=== PATIENT | male | born 2000 | race Caucasian/White ===

== ENCOUNTER 2024-05-27 09:28 | Inpatient (IN) | payer MEDICAID, SELFPAY ==
[2024-05-27 09:30] VITALS: BP 100/55; PULSE 115; RESP 19; TEMP 36.8; O2SAT 100; BMI 21.4
--- NOTE | 2024-05-27 09:46 | EDNOTE_ITS ---
ED Weakness RME/HPI General Chief complaint: Weakness Stated complaint: LEG WEAKNESS Time Seen by Provider: 05/27/24 09:42 Arrival date/time: 05/27/24 09:28 RME / HPI RME / HPI Narrative: 24 year old male with history of alcohol abuse, alcohol withdrawal seizures (x3) presents to the ED BIBA from home for evaluation of global weakness beginning 4 days ago. States 4 days ago he was getting out of bed and while attempting to stand, suddenly lost all strength in his legs and fell to the floor. States he was unable to get up on his own and required assistance up. Reportedly in the last 3 days he is bed ridden and crawling to use the restroom. Denies fevers, chills, chest pain, cough, shortness of breath, abdominal pain, n/v/d, urinary symptoms or urine/bowel incontinence. Denies any numbness/tingling to the lower extremities. Denies any head injury/trauma, neck pain. Denies any history of similar weakness. Denies dizziness or light headedness Patient admits to drinking alcohol every day and last drank this morning. States he drinks [place] hard lemonade. Related Data Home Medications ?Medication ?Instructions ?Recorded ?Confirmed No Known Home Medications 05/27/24 05/27/24 Allergies Allergy/AdvReac Type Severity Reaction Status Date / Time No Known Allergies Allergy Unverified 11/14/23 15:08 Review of Systems Review of Systems Narrative Review of Systems: GEN: No fever, no chills, no weight loss EYES: No discharge, no visual changes, no pain HEENT: No ear pain, no congestion, no sore throat PULM: No shortness of breath, no cough, no congestion CV: No chest pain, no palpitations GI: No nausea, no vomiting, no diarrhea, no pain, no constipation : No frequency, no urgency and no dysuria MUSC/SKEL No joint pain, no back pain SKIN: No rash NEURO: +generalized weakness, more in the lower extremities, no headache Past Medical History Past Medical History CARDIAC: Negative Congestive Heart Failure RESPIRATORY: Negative Chronic Obstructive Pulmonary Disease (COPD) GENITOURINARY: Negative Renal Disease ENDOCRINE: Negative Diabetes Mellitus Type 1 or Diabetes Mellitus Type 2 Social History SMOKING STATUS: Heavy (> 1 pack/day) SUBSTANCE USE: does not use ED Exam Narrative Physical exam: GENERAL APPEARANCE: Well hydrated, well nourished, in no acute distress. VITALS: All vitals were reviewed and the pulse ox is 100% on room air which is normal according to my interpretation. HEENT: Normocephalic, atramatic, EOMI, EACs are patent. There is no bulge or retraction. Throat without erythema or exudate. Moist oromucosa. No jaundice NECK: Supple, no JVD or bruits. CARDIOVASCULAR: Heart regular without S3-S4 or murmur. No rubs or gallops. LUNGS/CHEST: Clear to auscultation bilaterally. No rales, rhonchi, or wheezing. Normal inspection. ABDOMEN: Soft, nontender, with normal bowel sounds. No pulsatile masses. No rebound, rigidity, or guarding. No incarcerated hernia. Normal inspection and palpation. EXTREMITIES: No edema, clubbing, or cyanosis. SKIN: Warm and dry without rashes. Normal inspection. MUSCULOSKELETAL: No gross deformity. NEURO: Alert and oriented x3. Cranial nerves II through XII grossly intact. Patients lower extremities are weak, barely able to lift up against gravity. Fairly strong plantar flexion 3/5. Extremely weak dorsiflexion 0/5. PSYCHIATRIC: Normal mood and affect. No psychosis. Course Quality Measures none Orders Category Date Time Status EKG (ED ONLY) *Do not use* NOW Care 05/27/24 11:09 Completed Saline [Insert IV] NOW Care 05/27/24 09:58 Active Consult to Neurology / Tele-Neurology Stat Cons 05/27/24 12:[address] cervical spine wo con Stat Exams 05/27/24 09:[address] head/brain wo con Stat Exams 05/27/24 09:[address] lumbar spine wo con Stat Exams 05/27/24 09:[address] thoracic spine wo con Stat Exams 05/27/24 09:58 Completed EKG (ED Only) Stat Exams 05/27/24 11:09 Draft Alcohol, Blood Medical Stat Lab 05/27/24 10:00 Completed CBC Stat Lab 05/27/24 10:00 Completed CMP [Comprehensive Metabolic Panel] Stat Lab 05/27/24 10:00 Completed Drug Screen,Urine Stat Lab 05/27/24 11:00 Completed Folate Stat Lab 05/27/24 12:51 Ordered Magnesium Stat Lab 05/27/24 10:00 Completed Prothrombin Time with INR Stat Lab 05/27/24 10:00 Completed Vitamin B1 (Thiamine)* Stat Lab 05/27/24 Ordered Vitamin B12 Stat Lab 05/27/24 12:51 Ordered Vitamin D 25 Hydroxy Total Stat Lab 05/27/24 12:51 Ordered POTASSIUM CHL 10 mEq IVPB [Kcl Ivpb] Med 05/27/24 10:47 Discontinued 10 meq in 100 ml IV Q1H Potassium Chloride [K-Dur] Med 05/27/24 10:47 Discontinued 40 meq PO X1 ONE Sodium Chloride 0.9% 1000 ml [Ns] 1,000 ml Med 05/27/24 13:01 Active Folic Acid Inj 1 mg Thiamine Inj [Vitamin B-1 Inj] 100 mg Multivitamin Inj [Infuvite Inj] 10 ml Magnesium Sulf 50% Inj (gm) 1 gm IV 500 mls/hr Sodium Chloride 0.9% 1000 ml [Ns] 1,000 ml Med 05/27/24 10:18 Active IV 125 mls/hr Vital Signs Vital signs: Vital Signs Temperature 98.2 F 05/27/24 09:30 Pulse Rate 115 H 05/27/24 09:30 Respiratory Rate 19 05/27/24 09:30 Blood Pressure 100/55 L 05/27/24 09:30 Pulse Oximetry (%) 100 05/27/24 09:30 Oxygen Delivery Method Room Air 05/27/24 09:30 Weakness MDM Narrative MDM Narrative:: Heather Cortés am scribing for and in the presence of Dr. Dougherty. CBC unremarkable. Potassium of 2.6 which is low. The rest of CMP is negative. Liver enzymes slightly elevated consistent with chronic alcohol consumption. Alcohol level is only 41. U tox is negative. Pro time is negative. Magnesium is normal. CT head was reviewed and interpreted by me as follow: No bleed. No mass. No shifting. No swelling. Normal ventricles and normal bones CT cervical spine was reviewed and interpreted by me as follow: No fracture. No dislocation. No mass. No disc collapse CT thoracic spine was reviewed and interpreted by me as follow: No fracture. No dislocation. No mass. No disc collapse CT lumbar spine was reviewed and interpreted by me as follow: No fracture. No dislocation. No mass. No collapse discs Twelve-lead EKG that was done at 11:20 AM and interpreted by me as follow: Normal sinus rhythm. Heart rate 106. Normal axis. No ST elevation or depression. No PVC. No STEMI. Regular rate and rhythm. In the emergency department we are giving the patient IV fluid and potassium by mouth and by IV. 12:45 PM, I spoke to and discussed with Dr Snyder, neurologist on-call. She knows the patient from previous admission. She recommend to check the level of thiamine, folate, B12 and vitamin D. Which I did put in. After the lab being drawn for the above, we will put the patient on a banana bag. 12:50 PM, I spoke to and discussed with Dr. Patel, hospitalist on-call. He is here to evaluate the patient and decided to admit the patient. Critical care time is approximately 35 minutes excluding any procedure. The high probability of sudden, clinically significant deterioration in the patient?s condition required the highest level of my preparedness to intervene urgently. The services I provided to this patient were to treat and/or prevent clinically significant deterioration. Services included the following: chart data review, reviewing nursing notes and/or old charts, documentation time, j2ee consultant collaboration regarding findings and treatment options, medication orders and management, direct patient care, vital sign assessments and ordering, interpreting and reviewing diagnostic studies and lab tests. Aggregate critical care time includes only time during which I was engaged in work directly related to the patient?s care, as described above, whether at bedside or elsewhere in the Emergency Department. It did not include time spent performing other reported procedures or the services of residents, students, nurses or physician assistants. Patient data External records reviewed:: [facility] previous records (I reviewed ED visit on 11/16/2023) and EMS form Clinical information provided by:: patient and EMS Social determinants that could affect healthcare access:: alcohol use Patient has the following chronic illnesses:: Alcohol abuse, hx of alcohol withdrawal seizures x3 How is presenting disease/condition affected by chronic disease/condition?: exacerbated by Evaluation data The following diagnostics were reviewed and interpreted by me:: lab results and radiology exam(s) Lab and/or radiology exams considered but not ordered:: None Interpretation Summary: Ordering Physician: Massimo Dougherty MD Date of Service: 05/27/24 Procedure(s): CT cervical spine wo con Accession Number(s): [id number] cc: Pasquale oG MD; NO PRIMARY/FAMILY,PHYSICIAN; Massimo Dougherty MD~ Examination: CT cervical spine without contrast 2-D sagittal reconstructions 2-D coronal reconstructions 3-D reconstructions. Exam date and time:May 27, 2024 1009 hours INDICATIONS: Frequent falls this week with injury to the neck, neck pain CTDI:vol (mGy) 7.62 DLP: (mGycm) 173 Technique: Multiple 2 mm axial sections of the cervical spine have been obtained. The coronal and sagittal reconstructions have been obtained. 3-D reconstructions have been obtained. Low dose protocols were performed. One or more of the following dose reduction techniques were used; automated exposure control, adjustment of the mA and/or KV according to patient size, use of iterative reconstruction technique. Findings: Axial sections demonstrate intact base of the skull. C1 exhibit satisfactory relationship to the odontoid. No acute cervical vertebral body fracture seen. Alignment posterior spinous processes satisfactory. Impression: No acute cervical fracture. Dictated By: Pasquale Go MD Signed By: <Electronically signed by Pasquale Go MD in OV> 05/27/24 1052 Ordering Physician: Massimo Dougherty MD Date of Service: 05/27/24 Procedure(s): CT head/brain wo [facility] Accession Number(s): [id number] cc: Pasquale Go MD; NO PRIMARY/FAMILY,PHYSICIAN; Massimo Dougherty MD~ Examination: CT brain head without contrast. 2-D sagittal coronal reconstructions Date and time of exam:May 27, 2024 1009 hours INDICATIONS: Frequent falls this week with injury to the head, head pain COMPARISON: December 14, 2023 CTDI: vol (mGy):50.5 DLP: (mGycm):941 Technique: Multiple CT axial sections of the brain have been obtained, 5 mm slice thickness. Contrast has not been administered. 2-D sagittal, coronal reconstructions have been obtained Low dose protocols were performed. One or more of the following dose reduction techniques were used; automated exposure control, adjustment of the mA and/or KV according to patient size, use of iterative reconstruction technique. Findings: No significant ventricular enlargement. Intra-axial or extra-axial hemorrhage density is not seen. No mass effect or midline shift Basal cisterns are not remarkable. Fourth ventricle is midline. Cranial vault intact. Impression: Negative for acute hemorrhage, mass effect or midline shift Dictated By: Pasquale Go MD Signed By: <Electronically signed by Pasquale Go MD in OV> 05/27/24 1053 Ordering Physician: Massimo Dougherty MD Date of Service: 05/27/24 Procedure(s): CT lumbar spine wo con Accession Number(s): [id number] cc: Pasquale Go MD; NO PRIMARY/FAMILY,PHYSICIAN; Massimo Dougherty MD~ Examination: CT lumbar spine, without contrast. 2-D sagittal reconstructions. 2-D coronal reconstructions. 3-D reconstructions. Date and time of exam:May 27, 2024 1014 hours INDICATIONS: Frequent falls over the last 3 days with injury to the lower back, lower back pain CTDI: vol (mGy):11.6 DLP: (mGycm):339 Technique: Multiple 1.25 mm axial sections of the lumbar spine without intravenous contrast have been obtained. 2-D sagittal and coronal reconstructions have been obtained. 3-D reconstructions have been obtained. Low dose protocols were performed. One or more of the following dose reduction techniques were used; automated exposure control, adjustment of the mA and/or KV according to patient size, use of iterative reconstruction technique. Findings: Adequate alignment lumbar vertebral bodies on the lateral view No lumbar vertebral body compression fracture No lumbar disc narrowing Lumbar pedicles, laminae, transverse and posterior spinous processes intact No focal lumbar disc protrusions IMPRESSION: No lumbar fracture Dictated By: Pasquale Go MD Signed By: <Electronically signed by Pasquale Go MD in OV> 05/27/241055 Ordering Physician: Massimo Dougherty MD Date of Service: 05/27/24 Procedure(s): CT thoracic spine wo [facility] Accession Number(s): [id number] cc: Pasquale Go MD; NO PRIMARY/FAMILY,PHYSICIAN; Massimo Dougherty MD~ Examination: CT thoracic spine, without contrast. 2-D sagittal reconstructions. 2-D coronal reconstructions. 3-D reconstructions. Date and time of exam:May 27, 2024 1014 hours INDICATIONS: Frequent falls over the last 3 days with injury to the back, back pain CTDI: vol (mGy):17.3 DLP: (mGycm):535 Technique: Multiple 1.25 mm axial sections of the thoracic spine without intravenous contrast have been obtained. 2-D sagittal and coronal reconstructions have been obtained. 3-D reconstructions have been obtained. Low dose protocols were performed. One or more of the following dose reduction techniques were used; automated exposure control, adjustment of the mA and/or KV according to patient size, use of iterative reconstruction technique. Findings: Adequate alignment thoracic vertebral bodies No thoracic vertebral body compression fracture Thoracic pedicles, laminae, transverse and posterior spinous processes intact No focal thoracic disc protrusions IMPRESSION: No acute thoracic fracture Dictated By: Pasquale Go MD Signed By: <Electronically signed by Pasquale Go MD in OV> 05/27/241054 Medications / Prescriptions Medications or Prescriptions considered but not ordered:: None Medication administrations:: Medication Administration History Sodium Chloride (Ns) 1,000 mls @ 125 mls/hr IV .Q8H ONE Stop: 05/27/24 18:17 Last Admin: 05/27/24 10:51 Dose: 125 mls/hr Documented By: ARF Folic Acid 1 mg/ Thiamine HCl 100 mg/ Multivitamins/Minerals 10 ml/ Magnesium Sulfate 1 gm / Sodium Chloride 1,013.2 mls @ 500 mls/hr IV .Q2H2M ONE Stop: 05/27/24 15:02 Discontinued Medications Potassium Chloride (Kcl Ivpb) 10 meq in 100 mls @ 100 mls/hr IV Q1H STA Stop: 05/27/24 11:46 Last Admin: 05/27/24 10:56 Dose: 100 mls/hr Documented By: ARF Potassium Chloride (Potassium Chloride 20 Meq Tabcr) 40 meq PO X1 ONE Stop: 05/27/24 10:48 Last Admin: 05/27/24 10:56 Dose: 40 meq Documented By: ARF See above Consultations Consultation(s) initiated? (list below): Yes Consultation #1 (Physician, Specialty, Details): I spoke with hospitalist Dr. Patel regarding admission. Discussed patients PMHx, HPI, ED course, exam findings, labs, and radiology results as noted above. Time: 12:45 Consultation #2 (Physician, Specialty, Details): I spoke with neurologist Dr. Snyder. Discussed patients PMHx, HPI, ED course, exam findings, labs, and radiology results as noted above. Time: 12:47 Diagnosis Weakness Differential Diagnosis: anemia, hypothyroidism, rhabdomyolysis, sepsis and dehydration Most likely diagnosis given after review of the tests above:: Peripheral neuropathy Alcoholism Hypokalemia Leg weakness Admission Indicated Admission indicated?: indicated Admission Request Was there a request for admission?: Yes Admission Attestation Admission request attestation: Discussed case with [] from Hospitalist service regarding admission. Discussed patients ED course, exam findings, labs, and radiology results. The Hospitalist [agrees,declines] to accept the patient for admission. Disposition Plan Disposition Plan: Admit Discharge Plan Plan Patient Disposition: Admit Acute Care w/in Hospital Disposition Comment: Stable for admit Prescriptions/Referrals Prescriptions/Med Rec: No Action No Known Home Medications Referrals: No Primary/Family,Physician [Primary Care Provider] - In 1 week Problem List Clinical Impression: Bilateral leg weakness, Peripheral neuropathy, Alcoholism, Acute hypokalemia Patient/Caregiver Discharge Instructions Print Language: Slovak Stand Alone Forms: Krystle Award Info., Patient Portal Info Letter
--- NOTE | 2024-05-27 09:58 | XR_ITS ---
Examination: CT lumbar spine, without contrast. 2-D sagittal reconstructions. 2-D coronal reconstructions. 3-D reconstructions. Date and time of exam:May 27, 2024 1014 hours INDICATIONS: Frequent falls over the last 3 days with injury to the lower back, lower back pain CTDI: vol (mGy):11.6 DLP: (mGycm):339 Technique: Multiple 1.25 mm axial sections of the lumbar spine without intravenous contrast have been obtained. 2-D sagittal and coronal reconstructions have been obtained. 3-D reconstructions have been obtained. Low dose protocols were performed. One or more of the following dose reduction techniques were used; automated exposure control, adjustment of the mA and/or KV according to patient size, use of iterative reconstruction technique. Findings: Adequate alignment lumbar vertebral bodies on the lateral view No lumbar vertebral body compression fracture No lumbar disc narrowing Lumbar pedicles, laminae, transverse and posterior spinous processes intact No focal lumbar disc protrusions IMPRESSION: No lumbar fracture
--- NOTE | 2024-05-27 09:58 | XR_ITS ---
Examination: CT brain head without contrast. 2-D sagittal coronal reconstructions Date and time of exam:May 27, 2024 1009 hours INDICATIONS: Frequent falls this week with injury to the head, head pain COMPARISON: December 14, 2023 CTDI: vol (mGy):50.5 DLP: (mGycm):941 Technique: Multiple CT axial sections of the brain have been obtained, 5 mm slice thickness. Contrast has not been administered. 2-D sagittal, coronal reconstructions have been obtained Low dose protocols were performed. One or more of the following dose reduction techniques were used; automated exposure control, adjustment of the mA and/or KV according to patient size, use of iterative reconstruction technique. Findings: No significant ventricular enlargement. Intra-axial or extra-axial hemorrhage density is not seen. No mass effect or midline shift Basal cisterns are not remarkable. Fourth ventricle is midline. Cranial vault intact. Impression: Negative for acute hemorrhage, mass effect or midline shift
--- NOTE | 2024-05-27 09:58 | XR_ITS ---
Examination: CT thoracic spine, without contrast. 2-D sagittal reconstructions. 2-D coronal reconstructions. 3-D reconstructions. Date and time of exam:May 27, 2024 1014 hours INDICATIONS: Frequent falls over the last 3 days with injury to the back, back pain CTDI: vol (mGy):17.3 DLP: (mGycm):535 Technique: Multiple 1.25 mm axial sections of the thoracic spine without intravenous contrast have been obtained. 2-D sagittal and coronal reconstructions have been obtained. 3-D reconstructions have been obtained. Low dose protocols were performed. One or more of the following dose reduction techniques were used; automated exposure control, adjustment of the mA and/or KV according to patient size, use of iterative reconstruction technique. Findings: Adequate alignment thoracic vertebral bodies No thoracic vertebral body compression fracture Thoracic pedicles, laminae, transverse and posterior spinous processes intact No focal thoracic disc protrusions IMPRESSION: No acute thoracic fracture
--- NOTE | 2024-05-27 09:58 | XR_ITS ---
Examination: CT cervical spine without contrast 2-D sagittal reconstructions 2-D coronal reconstructions 3-D reconstructions. Exam date and time:May 27, 2024 1009 hours INDICATIONS: Frequent falls this week with injury to the neck, neck pain CTDI:vol (mGy) 7.62 DLP: (mGycm) 173 Technique: Multiple 2 mm axial sections of the cervical spine have been obtained. The coronal and sagittal reconstructions have been obtained. 3-D reconstructions have been obtained. Low dose protocols were performed. One or more of the following dose reduction techniques were used; automated exposure control, adjustment of the mA and/or KV according to patient size, use of iterative reconstruction technique. Findings: Axial sections demonstrate intact base of the skull. C1 exhibit satisfactory relationship to the odontoid. No acute cervical vertebral body fracture seen. Alignment posterior spinous processes satisfactory. Impression: No acute cervical fracture.
--- NOTE | 2024-05-27 09:58 | PC.NURSE ---
PT BIBA TO ED FOR COMPLAINS OF NOT BEING ABLE TO WALK FOR THREE DAYS. PT STATED THAT HE WOKE UP IN THE MORNING AND TRIED TO GET UP TO THE BATHROOM AND HIS LEGS GAVE OUT. PT HAS BEEN CRAWLING AROUND AT HOME TO GET PLACES. PT HAS BRUISING TO HIS KNEES FROM CRAWLING ON THE GROUND. PT STATES HE DRINKS ABOUT THREE TALL CANS OF MIKES HARD [place] A DAY LAST DRINK WAS EARLY THIS AM. PT ALSO SATES HE HAS NUMBNESS TO THE RIGHT FOOT. PT ALERT AND ORIENTED X3, STATES HE HAS HAD SZ IN THE PAST LAST ONE BEING 6 MONTHS AGO. PT STATES HE IS SUPPOSED TO BE TAKIN GMEDS, DOESNT KNOW WHAT THEY ARE CALLED, BUT DOESNT TAKE ANY MEDS AT HOME. PT PLACED ON RECONDITIONER, IV PLACED, BLOOD DRAWN. WILL CONT TO MONITOR
[2024-05-27 10:30] LABS: Basophils # (Auto) 0.1 Thou/mm3 (0.0-0.2); Basophils % (Auto) 1 % (0-2.5); Eosinophils # (Auto) 0.1 Thou/mm3 (0.0-0.5); Eosinophils % (Auto) 2 % (0-10); Hematocrit 37.5 % (41.0-53.0); Hemoglobin 13.4 g/dL (13.5-16.0); Immature Granulocytes % (Auto) 0 % (0-0); Immature Granulocytes Auto 0.03 Thou/mm3 (0.00-0.00); Lymphocytes # (Auto) 1.6 Thou/mm3 (1.0-4.8); Lymphocytes % (Auto) 18 % (10-50); Mean Corpuscular HGB Conc 35.7 g/dl (31.0-37.0); Mean Corpuscular Hemoglobin 36.5 pg (25.0-35.0); Mean Corpuscular Volume 102 fL (80-100); Monocytes # (Auto) 1.4 Thou/mm3 (0.0-0.8); Monocytes % (Auto) 16 % (0-12); Neutrophils # (Auto) 5.4 Thou/mm3 (1.8-7.7); Neutrophils % (Auto) 63 % (37-80); Nucleated Red Blood Cell # 0.02 Thou/mm3 (0.00-0.00); Nucleated Red Blood Cell % 0 /100 WBC (0); Platelet Count 221 Thou/mm3 (140-440); Red Blood Count 3.67 Miln/mm3 (4.50-5.90); White Blood Count 8.6 Thou/mm3 (3.8-10.6)
[2024-05-27 10:35] LABS: Prothrombin Time 10.7 Seconds (9.0-12.2)
[2024-05-27 10:41] LABS: Alanine Aminotransferase 88 U/L (10-49); Albumin, Serum 3.4 gm/dL (3.5-5.0); Albumin/Globulin Ratio 1.5 (1.2-2.2); Alcohol, Blood Medical 41.4 mg/dL (0-10.0); Alkaline Phosphatase 70 U/L (46-116); Anion Gap 13 (7-16); Aspartate Amino Transferase 96 U/L (0-34); BUN/Creatinine Ratio 7 Ratio (12-20); Bilirubin,Total 0.9 mg/dL (0.3-1.2); Blood Urea Nitrogen < 5 mg/dL (9-23); Calcium 9.4 mg/dL (8.3-10.6); Calcium (Corrected) 9.9 mg/dL (8.5-10.1); Carbon Dioxide 30.7 mMol/L (20.0-31.0); Chloride 90 mMol/L (98-107); Creatinine (Component) 0.7 mg/dL (0.6-1.3); Estimated Creatinine Clearance 128.2 mL/min (>60); Globulin 2.2 gm/dL (2.3-3.5); Glucose 92 mg/dL (74-106); Magnesium 2.1 mg/dL (1.6-2.6); Osmolality,Calculated 265 (275-295); Sodium 134 mMol/L (136-145); Total Protein 5.6 gm/dL (5.7-8.2); eGFR > 60 See Note
[2024-05-27 10:44] LABS: Potassium 2.6 mMol/L (3.4-5.1)
[2024-05-27] MEDS: SODIUM CHLORIDE 0.9% 1000 ML 1,000 ML 125 ML IV (10:51)
[2024-05-27] MEDS: POTASSIUM CHLORIDE 20 mEq TABCR 40 MEQ PO (10:56)
[2024-05-27] MEDS: POTASSIUM CHL 10 mEq IVPB 10 MEQ/100 ML BAG 100 MEQ IV ×4 (10:56→18:55)
--- NOTE | 2024-05-27 11:09 | EKG_ITS ---
[facility] Test Date: 2024-05-27 Pat Name: CAMILLE HUGO Department: Room: - Gender: Male [employer] Machine: : 2000 Requested By: Massimo Dougherty Order Number: [id number] Reading MD: Massimo Dougherty Measurements Intervals [place] Rate: 106 P: 50 MO: 139 QRS: 68 QRSD: 83 T: 11 QT: 372 QTc: 494 Interpretive Statements SINUS TACHYCARDIA NONSPECIFIC T-WAVE ABNORMALITY ABNORMAL RHYTHM ECG Compared to ECG 11/16/2023 12:18:50 T-wave abnormality now present Short MO interval no longer present /store/S0/[id number]
[2024-05-27 11:23] LABS: Amphetamine/Methamp Scrn,U Negative (Negative); Barbiturate Screen,Urine Negative (Negative); Benzodiazepines Screen,Urine Negative (Negative); Benzoylecgonine Screen, Ur Negative (Negative); Fentanyl Screen,Urine Negative (Negative); Opiate Screen,Urine Negative (Negative); THC Screen,Urine Negative (Negative)
[2024-05-27 12:34] VITALS: BP 96/52; PULSE 110; RESP 19; TEMP 36.8; O2SAT 100
--- NOTE | 2024-05-27 14:08 | ESHP_ITS ---
<Statement entered by Last Mitchell MD - 05/27/24 20:42> 24-year-old male, with past medical history of alcohol use and alcohol withdrawal seizures came to the ED with generalized bilateral weakness. His potassium was low. Will replete potassium as needed. Dr Snyder on board. [facility] protocol. Will trend LFTs. Nicotine patch started. Pending Dr. Snyder's recs I discussed with and supervised my co-resident involved in the care of this patient. I agree with the assessment and plan as documented above. Last Mitchell,PGY-3 Disclaimer: Despite multiple revisions, due to the dictation software being used, the document below may not be free of grammatical errors including phonetic/typographic errors. However, this does not deter from our commitment to providing health care in the patient's best interest in mind. Documentation for date of: 05/27/24 HPI History of Present Illness Chief complaint: General body weakness History of present illness: The patient is a 24-year-old male with a previous medical history of alcohol abuse disorder and withdrawal seizures who came to the ED due to general body weakness that started few days ago, he noticed when he went to the restroom his legs were starting to feel weak, giving out . He also reported having cramping pain in his lower extremities. He reported drinking alcohol every day, he usually drinks mikes hard lemon drink, last alcohol intake was this morning. He reports his last episode of seizures was 6 months ago, he was admitted but left AMA. He was consulted by neurologist Dr Snyder during his previous admission, but did not follow-up with her outpatient. He denies taking any medications. According to the EMR, he was prescribed propranolol and sertraline. Had a discussion with patient regarding possibly following up with commercial marketing specialist outpatient, discussed with him aftermath of alcohol use, he showed interested in following up. ED course: Patient is tachycardic, afebrile, normotensive. Pertinent labs are hemoglobin 13.4, MCV 102, potassium 2.6, sodium 134, osmolality 265, AST 96, ALT 88, total protein 5.6, albumin 3.4, vitamin D 6.2, folate 2.19. Head and spine CT were unremarkable, EKG showed sinus tachycardia. He received 60 mEq of potassium chloride, was started on banana bag and normal saline at 125 mL/h. Patient will be admitted for general weakness due to hypokalemia caused by poor oral intake and alcohol abuse. Social history: Lives with his dad, occupation is self-employed patternmaker. Drinks alcohol every day, smokes a pack and a half every day for 8 years. Review of Systems Review of Systems Narrative Review of Systems: General: Denies weight loss, fever and chills. Reports general weakness, more in the lower extremities. HEENT: Denies changes in vision and hearing. Resp: Denies SOB, cough and wheezing. CVS: Denies palpitations and CP. GI: Denies abdominal pain, nausea, vomiting and diarrhea. : Denies dysuria and urinary frequency. MSK: Denies rash and pruritus. Reports pain in the lower extremities' muscles. Neuro: Denies headache and syncope. Psych: Reports feeling irritation due to feeling weak. Past Medical History Past Medical History CARDIAC: Negative Congestive Heart Failure RESPIRATORY: Negative Chronic Obstructive Pulmonary Disease (COPD) GENITOURINARY: Negative Renal Disease ENDOCRINE: Negative Diabetes Mellitus Type 1 or Diabetes Mellitus Type 2 Social History SMOKING STATUS: Heavy (> 1 pack/day) SUBSTANCE USE: does not use Exam Vital Signs Temp Pulse Resp BP Pulse Ox O2 Del Method 98.2 F 110 H 19 96/52 L 100 Room Air 05/27/24 12:34 05/27/24 12:34 05/27/24 12:34 05/27/24 12:34 05/27/24 12:34 05/27/24 12:34 Narrative Exam Physical Exam General: Awake and in no acute distress. Conversational and non-toxic appearing. HEENT: Normocephalic, atraumatic, mucous membranes moist. Heart: Regular rate and rhythm, no murmurs. Lungs: Clear to auscultation with no wheezing or crackles. Abdomen: Soft, nondistended, nontender, positive bowel sounds. ?No guarding or rebound tenderness. Neurologic: Alert and oriented x3, strength in the upper extremities 5/5, lower extremities 4/5. Extremities: No edema. Skin: No rash or ecchymoses. Results: Labs 05/29/24 05:11 05/29/24 05:11 Labs: Short CBC 05/27/24 Range/Units 10:00 WBC 8.6 (3.8-10.6) Thou/mm3 Hgb 13.4 L (13.5-16.0) g/dL Hct 37.5 L (41.0-53.0) % Plt Count 221 (140-440) Thou/mm3 [facility] 05/27/24 10:00 Sodium 134 L Potassium 2.6 L* Chloride 90 L Carbon Dioxide 30.7 BUN < 5 L Creatinine 0.7 Glucose 92 Calcium 9.4 Liver Function 05/27/24 Range/Units 10:00 Total Bilirubin 0.9 (0.3-1.2) mg/dL AST 96 H (0-34) U/L ALT 88 H (10-49) U/L Alkaline Phosphatase 70 (46-116) U/L Albumin 3.4 L (3.5-5.0) gm/dL Quality Measures Quality Measures none Medications Home Medications and Allergies Allergies Allergy/AdvReac Type Severity Reaction Status Date / Time No Known Allergies Allergy Unverified 11/14/23 15:08 Visit Medications Acetaminophen (Acetaminophen 325 Mg Tablet) 650 mg PO Q6H PRN PRN Reason: Fever >101.5 Stop: 06/26/24 13:54 Chlordiazepoxide HCl (Chlordiazepoxide Hcl 25 Mg Capsule) 25 mg PO TID RICARDO Stop: 06/01/24 14:14 Docusate Sodium (Docusate Sod 100 Mg Capsule) 100 mg PO QDAY PRN; Protocol PRN Reason: CONSTIPATION Stop: 06/26/24 13:54 Enoxaparin Sodium (Enoxaparin Sod Inj 40 Mg/0.4 Ml Syringe) 40 mg SC QDAY RICARDO Stop: 06/11/24 08:59 Folic Acid (Folic Acid 1 Mg Tablet) 1 mg PO BID RICARDO Stop: 06/01/24 20:59 Sodium Chloride (Ns) 1,000 mls @ 125 mls/hr IV .Q8H ONE Stop: 05/27/24 18:17 Last Admin: 05/27/24 10:51 Dose: 125 mls/hr Folic Acid 1 mg/ Thiamine HCl 100 mg/ Multivitamins/Minerals 10 ml/ Magnesium Sulfate 1 gm / Sodium Chloride 1,013.2 mls @ 500 mls/hr IV .Q2H2M ONE Stop: 05/27/24 15:02 Lorazepam (Lorazepam 0.5 Mg Tablet) 0.5 mg PO Q4HR PRN PRN Reason: CIWA Score 2-6 Stop: 06/01/24 14:02 Lorazepam (Lorazepam 0.5 Mg Tablet) 1 mg PO Q4HR PRN PRN Reason: CIWA SCORE 7-11 Stop: 06/01/24 14:02 Lorazepam (Lorazepam 0.5 Mg Tablet) 2 mg PO Q4HR PRN PRN Reason: CIWA SCORE 12-15 Stop: 06/01/24 14:02 Nicotine (Nicotine Patch 21 Mg/24 Hr Patch.Td24) 21 mg TOP QDAY RICARDO Stop: 06/26/24 14:14 Ondansetron HCl (Ondansetron Inj 2 Mg/Ml Inj 2 Ml) 4 mg IV Q6H PRN; Protocol PRN Reason: NAUSEA OR VOMITING Stop: 06/26/24 13:54 Sennosides (Senna Tablet) 1 tab PO QDAY PRN; Protocol PRN Reason: constipation Stop: 06/26/24 13:54 Thiamine HCl (Thiamine 100 Mg Tablet) 100 mg PO BID RICARDO Stop: 06/01/24 20:59 Discontinued Medications Chlordiazepoxide HCl (Chlordiazepoxide Hcl 25 Mg Capsule) 50 mg PO BID RICARDO Stop: 06/01/24 20:59 Potassium Chloride (Kcl Ivpb) 10 meq in 100 mls @ 100 mls/hr IV Q1H STA Stop: 05/27/24 11:46 Last Admin: 05/27/24 10:56 Dose: 100 mls/hr Potassium Chloride (Potassium Chloride 20 Meq Tabcr) 40 meq PO X1 ONE Stop: 05/27/24 10:48 Last Admin: 05/27/24 10:56 Dose: 40 meq Assessment & Plan Plan The patient is a 24-year-old male with a previous medical history of alcohol abuse disorder and withdrawal seizures who came to the ED due to general body weakness that started few days ago, he noticed when he went to the restroom his legs were starting to really feel weak. He was admitted due to general weakness, hypokalemia. #Hypokalemia #Alcohol abuse disorder #General muscle weakness Patient has a history of eating one meal a day and drinking every day. Patient received 60 mEq of potassium chloride in the ED and was started on banana bag. Plan: ? CIWA protocol, lorazepam as needed p.o. ? Chlordiazepoxide 25 mg 3 times daily ? Thiamine and folate p.o. ? Repeat potassium ? Monitor daily CMP - Maintenance fluids NS @125 ml/hr ?Refer to psych social worker #Macrocytic anemia Most likely in the setting of folate deficiency caused by poor oral intake. Labs show low level of folate. Plan: ? folate p.o. daily #Chronic smoker Patient showed interest in cutting down smoking. Plan: ? Nicotine patch 21 mg daily Health maintenance: FEN: regular DVT prophylaxis: lovenox 40 sc once GI prophylaxis: none Dispo: med tele CODE STATUS: Full code Plan of care discussed with attending Dr. Patel and PGY-[address] Mitchell. Leslee Lazo MD, PGY 1. Attending Provider Attestation/Addendum I reviewed labs, imaging, EKG, home medications and prior available records. Face to face evaluation was performed by me. I have personally examined the patient and discussed assessment and plan with the IM team. I reviewed the resident note and agree with the plan with exceptions as below. Please see my separate addendum for the same date of service
[2024-05-27] MEDS: [UNRECOGNIZED DRUG - OTHER] IV (14:10)
[2024-05-27] MEDS: FOLIC ACID IV (14:10)
[2024-05-27] MEDS: MULTIVITAMIN IV (14:10)
[2024-05-27] MEDS: THIAMINE IV (14:10)
[2024-05-27] MEDS: chlordiazePOXIDE HCl 25 MG CAPSULE PO ×2 (14:19→21:01)
[2024-05-27 14:33] LABS: Folate 2.19 ng/mL (>5.38); Vitamin B12 649 pg/mL (211-911); Vitamin D 25 Hydroxy Total 6.2 ng/mL (7.3-40.2)
[2024-05-27] MEDS: NICOTINE PATCH 21 MG/24 HR PATCH.TD24 TOP (14:48)
--- NOTE | 2024-05-27 14:56 | PD.ADDHP ---
Addendum History & Physical Addendum Date of report being addended: 05/27/24 Narrative: Attending's attestation: I reviewed labs, imaging, EKG, home medications and prior available records. Face to face evaluation was performed by me. I have personally examined the patient and discussed assessment and plan with the IM team. I reviewed the resident note and agree with the plan with exceptions as below. Generalized weakness Bilateral lower extremity weakness Alcohol abuse Tobacco abuse Acute hypotension Sinus tachycardia Hypokalemia Transaminitis Patient's bilateral lower extremity weakness is likely due to alcohol abuse versus vitamin deficiency. Consulted neurology: Recommended ordering vitamin levels. Banana bag was ordered in the ED Obtain PT evaluation IV hydration. Monitor vital signs Replete potassium and monitor BMP Transaminitis is likely due to alcohol abuse. Management as above. Trend LFTs. Started Librium 25 mg 3 times daily Counseled the patient regarding the importance of avoiding tobacco and avoiding alcohol CIDE protocol
[2024-05-27 15:33] VITALS: BP 149/81; PULSE 14; RESP 14; TEMP 36.8; O2SAT 98
[2024-05-27 16:27] LABS: Potassium 3.3 mMol/L (3.4-5.1)
[2024-05-27 17:25] VITALS: BP 115/68; PULSE 105; RESP 12; TEMP 36.8; O2SAT 99
[2024-05-27 18:49] VITALS: BP 105/64; PULSE 98; RESP 12; TEMP 36.6; O2SAT 99
[2024-05-27 19:49] VITALS: BMI 20.9
[2024-05-27 20:00] VITALS: BP 114/76; PULSE 98; RESP 20; TEMP 37; O2SAT 97
[2024-05-27] MEDS: FOLIC ACID 1 MG TABLET PO (21:01)
[2024-05-27] MEDS: POTASSIUM CHLORIDE 20 mEq TABCR PO (21:01)
[2024-05-27] MEDS: THIAMINE 100 MG TABLET PO (21:01)
[2024-05-27] MEDS: ACETAMINOPHEN 325 MG TABLET 650 MG PO (23:02)
--- NOTE | 2024-05-27 23:22 | ESCONSULT_ITS ---
History of Present Illness Data of Consult Requesting Physician: Kaiser Patel MD Primary Care Provider: Physician No Primary/Family Consult Narrative History of present illness: Mr. Fong is a 24-year-old male with chronic alcohol abuse disorder and withdrawal seizures presented to the ER with generalized weakness lasting for few days to the point of legs giving out associated with the cramping. He drinks every day, last drink was this morning. No seizures witnessed in the last few days. He did have alcohol withdrawal seizure 6 months ago but he left AGAINST MEDICAL ADVICE in the middle of the workup. He did not have any follow- up afterwards with neurology. Workup in the ER: Vitals: Patient is tachycardic, afebrile, normotensive. Labs: hemoglobin 13.4, MCV 102, potassium 2.6, sodium 134, osmolality 265, AST 96, ALT 88, total protein 5.6, albumin 3.4, vitamin D 6.2, folate 2.19. Imaging: Head and spine CT were unremarkable, EKG showed sinus tachycardia. He received 60 mEq of potassium chloride, was started on banana bag and normal saline at 125 mL/h. Patient got admitted for general weakness due to hypokalemia caused by poor oral intake and alcohol abuse. Neurology was consulted to evaluate further. cc:: cc: Kaiser Patel MD Review of Systems Review of Systems Systems Reviewed: All systems reviewed, normal except as documented Past Medical History Past Medical History CARDIAC: Negative Congestive Heart Failure RESPIRATORY: Negative Chronic Obstructive Pulmonary Disease (COPD) GENITOURINARY: Negative Renal Disease ENDOCRINE: Negative Diabetes Mellitus Type 1 or Diabetes Mellitus Type 2 Social History SMOKING STATUS: Heavy (> 1 pack/day) SUBSTANCE USE: does not use Meds Home Medications and Allergies Home Medications ?Medication ?Instructions ?Recorded ?Confirmed ?Type No Known Home Medications 05/27/24 05/27/24 History Allergies Allergy/AdvReac Type Severity Reaction Status Date / Time No Known Allergies Allergy Unverified 11/14/23 15:08 Exam - Neurology Vital Signs Temp Pulse Resp BP Pulse Ox O2 Del Method 98.6 F 98 20 114/76 97 Room Air 05/27/24 20:00 05/27/24 20:00 05/27/24 20:00 05/27/24 20:00 05/27/24 20:00 05/27/24 20:00 Narrative Exam GENERAL APPEARANCE: Well hydrated, well-nourished in no acute distress. HEENT: Normocephalic, atraumatic, extraocular movements intact. Pupils: Equal reacting to light and accommodation, no nystagmus noted NECK: Supple, no JVD or bruits. CARDIOVASULAR: Heart: S1, S2 heard, regular without S3-S4 or murmur no rubs or gallops. LUNGS/CHEST: Clear to auscultation bilaterally. No rails, rhonchi, or wheezing. Normal inspection. ABDOMEN: Soft, nontender, with normal bowel sounds. No pulsatile masses. No rebound, rigidity, or guarding. Normal inspection and palpation. EXTREMITIES: Normal inspection and palpation. No edema, clubbing or cyanosis. SKIN: Warm and dry without rashes. Normal inspection. MUSCULOSKELETAL: No cervical, thoracic, lumbar or midline bony tenderness. Normal inspection. NEURO: Alert, awake and oriented x3. Cranial nerves: II through XII grossly intact. Speech and language: Normal with no dysarthria or dysphasia. Motor system: Tone and bulk: Normal: Strength: Moves all 4 extremities; No pronator drift noted. But significant weakness in the lower extremities both proximally and distally. deep tendon reflexes: 1+ bilaterally symmetrical. Plantar reflex: Downgoing bilaterally. Sensory system: Intact to all modalities of sensation bilaterally. Coordination: Intact to [id number] and [id number] test bilaterally. No ataxia, no dysmetria, or dysdiadochokinesia noted. No intention tremors noted. Gait: Not tested. No signs of meningeal irritation noted. PSYCHIATRIC: Normal mood and affect. Results Labs 05/28/24 04:45 05/28/24 04:45 Labs: Short CBC 05/27/24 Range/Units 10:00 WBC 8.6 (3.8-10.6) Thou/mm3 Hgb 13.4 L (13.5-16.0) g/dL Hct 37.5 L (41.0-53.0) % Plt Count 221 (140-440) Thou/mm3 BMP 05/27/24 05/27/24 10:00 16:12 Sodium 134 L Potassium 2.6 L* 3.3 L D Chloride 90 L Carbon Dioxide 30.7 BUN < 5 L Creatinine 0.7 Glucose 92 Calcium 9.4 Liver Function 05/27/24 Range/Units 10:00 Total Bilirubin 0.9 (0.3-1.2) mg/dL AST 96 H (0-34) U/L ALT 88 H (10-49) U/L Alkaline Phosphatase 70 (46-116) U/L Albumin 3.4 L (3.5-5.0) gm/dL Assessment & Plan Assessment and plan (1) Acute hypokalemia: Status: Acute Assessment and plan: Low potassium of 2.6 could be contributing to generalized weakness. Agreed with replacing potassium and monitoring it closely. (2) Alcoholism: Status: Chronic Assessment and plan: Advised alcohol cessation However patient does not think that it is a problem at all as he has done this for a long time and it does help him relax (3) Bilateral leg weakness: Status: Acute Assessment and plan: Most likely secondary to hypokalemia/acute on chronic myopathy/neuropathy from chronic alcoholism (4) Peripheral neuropathy: Status: Acute Assessment and plan: Continue with the vitamin supplementation. He would need EMG nerve conduction study of both upper extremities and lower extremities to evaluate for the extent of neuropathy. He would need lifestyle changes with the dietary modification, B complex and vitamin D supplementation, and alcohol cessation.
[2024-05-28] VITALS (9 sets, daily range): BP systolic 100–118; BP diastolic 67–83; PULSE 72–105; RESP 16–98; TEMP 36.2–36.6; O2SAT 95–98; BMI 13.0
[2024-05-28] MEDS: HYDROcodone/APAP 5/325 TABLET 1 TAB PO (03:37)
[2024-05-28 06:08] LABS: Basophils % (Auto) 1 % (0-2.5); Eosinophils # (Auto) 0.1 Thou/mm3 (0.0-0.5); Eosinophils % (Auto) 2 % (0-10); Hematocrit 31.9 % (41.0-53.0); Hemoglobin 11.1 g/dL (13.5-16.0); Immature Granulocytes % (Auto) 0 % (0-0); Immature Granulocytes Auto 0.02 Thou/mm3 (0.00-0.00); Lymphocytes # (Auto) 1.1 Thou/mm3 (1.0-4.8); Lymphocytes % (Auto) 25 % (10-50); Mean Corpuscular HGB Conc 34.8 g/dl (31.0-37.0); Mean Corpuscular Hemoglobin 36.8 pg (25.0-35.0); Mean Corpuscular Volume 106 fL (80-100); Monocytes # (Auto) 0.7 Thou/mm3 (0.0-0.8); Monocytes % (Auto) 16 % (0-12); Neutrophils # (Auto) 2.5 Thou/mm3 (1.8-7.7); Neutrophils % (Auto) 56 % (37-80); Nucleated Red Blood Cell % 0 /100 WBC (0); Platelet Count 181 Thou/mm3 (140-440); RDW Standard Deviation 62.1 fL (35.1-43.9); Red Blood Count 3.02 Miln/mm3 (4.50-5.90); White Blood Count 4.5 Thou/mm3 (3.8-10.6)
[2024-05-28] MEDS: chlordiazePOXIDE HCl 25 MG CAPSULE PO ×2 (06:16→22:00)
[2024-05-28 06:41] LABS: Alanine Aminotransferase 61 U/L (10-49); Albumin, Serum 2.9 gm/dL (3.5-5.0); Albumin/Globulin Ratio 1.8 (1.2-2.2); Alkaline Phosphatase 56 U/L (46-116); Anion Gap 3 (7-16); Aspartate Amino Transferase 59 U/L (0-34); BUN/Creatinine Ratio 8 Ratio (12-20); Bilirubin,Total 0.6 mg/dL (0.3-1.2); Blood Urea Nitrogen < 5 mg/dL (9-23); Calcium 8.5 mg/dL (8.3-10.6); Calcium (Corrected) 9.4 mg/dL (8.5-10.1); Carbon Dioxide 30.6 mMol/L (20.0-31.0); Chloride 101 mMol/L (98-107); Creatinine (Component) 0.6 mg/dL (0.6-1.3); Globulin 1.6 gm/dL (2.3-3.5); Glucose 102 mg/dL (74-106); Magnesium 2.3 mg/dL (1.6-2.6); Osmolality,Calculated 267 (275-295); Potassium 3.3 mMol/L (3.4-5.1); Sodium 135 mMol/L (136-145); Total Protein 4.5 gm/dL (5.7-8.2); eGFR > 60 See Note
[2024-05-28] MEDS: FOLIC ACID 1 MG TABLET PO ×2 (08:28→22:00)
[2024-05-28] MEDS: POTASSIUM CHLORIDE 20 mEq TABCR 40 MEQ PO ×2 (08:28→11:49)
[2024-05-28] MEDS: THIAMINE 100 MG TABLET PO (08:28)
[2024-05-28] MEDS: NICOTINE PATCH 21 MG/24 HR PATCH.TD24 TOP (08:29)
[2024-05-28] MEDS: ENOXAPARIN SOD INJ 40 MG/0.4 ML SYRINGE SC (08:29)
--- NOTE | 2024-05-28 08:54 | ESPR_ITS ---
<Statement entered by Last Mitchell MD - 05/28/24 15:14> Patient was examined bedside this morning, patient was not able to work with physical therapy we started him on thiamine IV 500 mg 3 times daily for 2 days. Weakness most likely secondary to chronic alcohol use. will continue to monitor labs. Will continue Librium 25 times daily for now. he is in high risk for alcohol withdrawal. [facility] protocol in place will continue physical therapy. I discussed with and supervised my co-resident involved in the care of this patient. I agree with the assessment and plan as documented above. Last Mitchell,PGY-3 Disclaimer: Despite multiple revisions, due to the dictation software being used, the document below may not be free of grammatical errors including phonetic/typographic errors. However, this does not deter from our commitment to providing health care in the patient's best interest in mind. Documentation for date of: 05/28/24 Subjective Subjective Interval history: Patient was seen and examined by the bedside. No acute overnight events. Patient is resting in bed comfortably, reports his weakness has improved, denies abdominal pain. Reports feeling numbness in his left heel. Continues to receive benzodiazepines and vitamins. Dr. Snyder consulted, appreciate recommendations. Reports he is still weak and was not able to walk to the bathroom, uses urinal. Reported pulsing, electric like pain in the shins and feet. Received tylenol. Was started on Thiamine IV in addition to PO. Exam Vital Signs Temp Pulse Resp BP Pulse Ox O2 Del Method 97.3 F 80 18 100/67 98 Room Air 05/28/24 08:00 05/28/24 08:00 05/28/24 08:00 05/28/24 08:00 05/28/24 08:00 05/28/24 08:00 Narrative Exam Physical Exam General: Awake and in no acute distress. Conversational and non-toxic appearing. HEENT: Normocephalic, atraumatic, mucous membranes moist. Heart: Regular rate and rhythm, no murmurs. Lungs: Clear to auscultation with no wheezing or crackles. Abdomen: Soft, nondistended, nontender, positive bowel sounds. ?No guarding or rebound tenderness. Neurologic: Alert and oriented x3, strength in the upper extremities 5/5, lower extremities 4-5/5. Tendom reflexes symmetrical, D=S, +. Extremities: No edema. Skin: No rash or ecchymoses. Objective Labs 05/29/24 05:11 05/29/24 05:11 Labs: Laboratory Results - last 24 hr 05/27/24 05/27/24 05/27/24 10:00 11:00 13:29 WBC 8.6 RBC 3.67 L Hgb 13.4 L Hct 37.5 L MCV 102 H MCH 36.5 H MCHC 35.7 RDW Std Deviation 59.0 H Plt Count 221 Neut % (Auto) 63 Lymph % (Auto) 18 [place] % (Auto) 16 H Eos % (Auto) 2 Baso % (Auto) 1 Neut # (Auto) 5.4 Lymph # (Auto) 1.6 [place] # (Auto) 1.4 H Eos # (Auto) 0.1 Baso # (Auto) 0.1 Immature Gran # (Auto) 0.03 H Absolute Nucleated RBC 0.02 H Immature Gran % 0 Nucleated RBC % 0 PT 10.7 INR 1.0 Sodium 134 L Potassium 2.6 L* Chloride 90 L Carbon Dioxide 30.7 Anion Gap 13 BUN < 5 L Creatinine 0.7 Estim Creat Clear Calc 128.2 eGFR > 60 BUN/Creatinine Ratio 7 L Glucose 92 Calculated Osmolality 265 L Calcium 9.4 Corrected Calcium 9.9 Phosphorus Magnesium 2.1 Total Bilirubin 0.9 AST 96 H ALT 88 H Alkaline Phosphatase 70 Total Protein 5.6 L Albumin 3.4 L Globulin 2.2 L Albumin/Globulin Ratio 1.5 Vitamin B12 649 25-OH Vitamin D Total 6.2 L Folate 2.19 L Urine Opiates Screen Negative Urine Fentanyl Screen Negative Ur Barbiturates Screen Negative U Amphetamin/Meth Scrn Negative U Benzodiazepines Scrn Negative U Cocaine Metab Screen Negative U Marijuana (THC) Screen Negative Ethyl Alcohol 41.4 H 05/27/24 05/28/24 16:12 04:45 WBC 4.5 D RBC 3.02 L Hgb 11.1 L D Hct 31.9 L MCV 106 H MCH 36.8 H MCHC 34.8 RDW Std Deviation 62.1 H Plt Count 181 D Neut % (Auto) 56 Lymph % (Auto) 25 [place] % (Auto) 16 H Eos % (Auto) 2 Baso % (Auto) 1 Neut # (Auto) 2.5 Lymph # (Auto) 1.1 [place] # (Auto) 0.7 Eos # (Auto) 0.1 Baso # (Auto) 0.0 Immature Gran # (Auto) 0.02 H Absolute Nucleated RBC 0.00 Immature Gran % 0 Nucleated RBC % 0 PT INR Sodium 135 L Potassium 3.3 L D 3.3 L Chloride 101 Carbon Dioxide 30.6 Anion Gap 3 L BUN < 5 L Creatinine 0.6 Estim Creat Clear Calc 146.0 eGFR > 60 BUN/Creatinine Ratio 8 L Glucose 102 Calculated Osmolality 267 L Calcium 8.5 Corrected Calcium 9.4 Phosphorus 4.0 Magnesium 2.3 Total Bilirubin 0.6 AST 59 H ALT 61 H Alkaline Phosphatase 56 Total Protein 4.5 L Albumin 2.9 L D Globulin 1.6 L Albumin/Globulin Ratio 1.8 Vitamin B12 25-OH Vitamin D Total Folate Urine Opiates Screen Urine Fentanyl Screen Ur Barbiturates Screen U Amphetamin/Meth Scrn U Benzodiazepines Scrn U Cocaine Metab Screen U Marijuana (THC) Screen Ethyl Alcohol Quality Measures Quality Measures VTE prophylaxis Assessment & Plan Assessment Current Active Medications: Generic Name Dose Route Start Last Admin Trade Name Freq PRN Reason Stop Dose Admin Acetaminophen 650 mg 05/27/24 13:55 05/27/24 23:02 Acetaminophen 325 Mg Tablet PO 06/26/24 13:54 650 mg Q6H PRN Administration Fever >101.5 Chlordiazepoxide HCl 25 mg 05/27/24 14:15 05/28/24 06:16 Chlordiazepoxide Hcl 25 Mg Capsule PO 06/01/24 14:14 25 mg TID RICARDO Administration Docusate Sodium 100 mg 05/27/24 13:55 Docusate Sod 100 Mg Capsule PO 06/26/24 13:54 QDAY PRN CONSTIPATION Protocol Enoxaparin Sodium 40 mg 05/28/24 09:00 05/28/24 08:29 Enoxaparin Sod Inj 40 Mg/0.4 Ml Syringe SC 06/11/24 08:59 40 mg QDAY RICARDO Administration Folic Acid 1 mg 05/27/24 21:00 05/28/24 08:28 Folic Acid 1 Mg Tablet PO 06/01/24 20:59 1 mg BID RICARDO Administration Lorazepam 0.5 mg 05/27/24 14:03 Lorazepam 0.5 Mg Tablet PO 06/01/24 14:02 Q4HR PRN CIWA Score 2-6 Lorazepam 1 mg 05/27/24 14:03 Lorazepam 0.5 Mg Tablet PO 06/01/24 14:02 Q4HR PRN CIWA SCORE 7-11 Lorazepam 2 mg 05/27/24 14:03 Lorazepam 0.5 Mg Tablet PO 06/01/24 14:02 Q4HR PRN CIWA SCORE 12-15 Nicotine 21 mg 05/27/24 14:15 05/28/24 08:29 Nicotine Patch 21 Mg/24 Hr Patch.Td24 TOP 06/26/24 14:14 21 mg QDAY RICARDO Administration Ondansetron HCl 4 mg 05/27/24 13:55 Ondansetron Inj 2 Mg/Ml Inj 2 Ml IV 06/26/24 13:54 Q6H PRN NAUSEA OR VOMITING Protocol Potassium Chloride 40 meq 05/28/24 14:00 Potassium Chloride 20 Meq Tabcr PO 05/28/24 14:01 X1 ONE Sennosides 1 tab 05/27/24 13:55 Senna Tablet PO 06/26/24 13:54 QDAY PRN constipation Protocol Thiamine HCl 100 mg 05/27/24 21:00 05/28/24 08:28 Thiamine 100 Mg Tablet PO 06/01/24 20:59 100 mg BID RICARDO Administration Plan The patient is a 24-year-old male with a previous medical history of alcohol abuse disorder and withdrawal seizures who came to the ED due to general body weakness that started few days ago, he noticed when he went to the restroom his legs were starting to really feel weak. He was admitted due to general weakness, hypokalemia. #Hypokalemia #Alcohol abuse disorder #General muscle weakness Patient has a history of eating one meal a day and drinking every day. Patient received 60 mEq of potassium chloride in the ED and was started on banana bag. Plan: ? CIWA protocol, lorazepam as needed p.o. ? Chlordiazepoxide 25 mg 3 times daily ? Thiamine and folate p.o. ? Repeat potassium ? Monitor daily CMP - Maintenance fluids NS @125 ml/hr ?Refer to social media content manager #Lower extremity weakness #Chronic polyneuropathy Most likely in the setting of hypokalemia, vitamin deficiency and chronic alcohol intake. Tendon reflexes are low, muscle tonus is normal. - Thiamine PO and IV - Regular diet - Follow-up with neurologist Dr. Snyder - PT #Macrocytic anemia Most likely in the setting of folate deficiency caused by poor oral intake. Labs show low level of folate. Plan: ? folate p.o. daily #Elevated transaminases, improving Most likely due to alcohol abuse. Plan: - monitor daily CMP #Chronic smoker Patient showed interest in cutting down smoking. Plan: ? Nicotine patch 21 mg daily Health maintenance: FEN: regular DVT prophylaxis: lovenox 40 sc once GI prophylaxis: none Dispo: med tele CODE STATUS: Full code Plan of care discussed with attending Dr. Moreau and PGY-[address] Mitchell. Leslee Lazo MD, PGY 1. Attending Provider Attestation/Addendum I, Valery Moreau, DO, attest that I was physically present for the samaniego portions of the service and evaluated the patient with the resident and I reviewed and discussed the case with the resident and agree with the resident's findings and plans of care as documented above Patient seen and evaluated this AM. Father is at bedside. Patient states that his symptoms started about 1.5 days ago during which he was unable to stand. Patient has had frequent falls and noted to have a healing ecchymosis over the dorsum of his left metatarsal. Father states that the patient drinks only 3 beers a day. His symptoms of seizure first manifested about 6 months ago and has since been controlled with drinking. He eats very little due to his drinking. Suspect that father may be reporting a lower number of beers than actually consumed. Patient also reports some pain that appear to be electric shock like. B12 levels appears WNL, but vit D and folic acid levels are low. Suspect thiamine deficiency as well due to peripheral neuropathy and reported poor nutrition. Will start patient on IV thiamine x2 days and continue with PT. Patient was unable to stand with PT today.
--- NOTE | 2024-05-28 08:58 | PC.SS ---
SS follow up note; Neurology following patient, Pending PT eval.
--- NOTE | 2024-05-28 09:15 | PC.SS ---
Bassam Fong is a 59-year-old male admitted to [facility] for Weakness. SS conducted bedside contact with the patient to complete initial assessment and to discuss discharge planning. Patient confirmed demographic information. Patient identifies his father Noah Fong [phone] as his surrogate decision maker. Patient resides at home with father. Pt states he is able to complete all ADL?s independently, no need for any source of DME. Pts PCP is at [facility] unsure of name (last visit about 1.5months ago) and pharmacy of choice is [facility]. DC option discussed and pt wishes to return home. Pts family will provide transportation upon DC. No further intervention required at this time, social services technician would be available to address any further concerns. DC Plan: Home DM: Father-Noah
--- NOTE | 2024-05-28 11:33 | PC.SS ---
SS follow up note; SS was informed by Ananya in PT that patient is not ambulating. SS contacted Team A to update them.
--- NOTE | 2024-05-28 12:07 | PC.SS ---
SS submitted inquiry for Wheel chair through [employer]. Pending PT notes.
--- NOTE | 2024-05-28 12:41 | PC.NURSE ---
patient found to be using home heating pad on feet, eduction given on risk of using heating pad on feet with decreased sensation, patient verbalized understanding and heating pad removed by family.
[2024-05-28] MEDS: THIAMINE INJ 250 MG in SODIUM CHLORIDE 0.9% 100 ML 205 MG IV (13:03)
[2024-05-28] MEDS: ACETAMINOPHEN 325 MG TABLET 650 MG PO ×2 (13:05→19:11)
[2024-05-28] MEDS: THIAMINE INJ 250 MG in SODIUM CHLORIDE 0.9% 100 ML 202 MG IV (15:42)
[2024-05-28] MEDS: THIAMINE INJ 500 MG in SODIUM CHLORIDE 0.9% 100 ML 202 MG IV (22:00)
[2024-05-28] MEDS: LORazepam 0.5 MG TABLET 1 MG PO (22:06)
--- NOTE | 2024-05-28 23:57 | PD.VPROG1 ---
Telemedicine visit statement This visit was conducted with the use of interactive audio and video telecommunications system that permits real time communication between the patient and the provider. Patient's verbal consent for virtual visit was obtained on 05/28/24 at 2357. Documentation for date of: 05/28/24 Virtual exam Vital Signs Temp Pulse Resp BP Pulse Ox O2 Del Method 98 F 82 20 118/80 97 Room Air 05/28/24 20:00 05/28/24 20:26 05/28/24 20:26 05/28/24 20:00 05/28/24 20:00 05/28/24 20:00 Objective Labs 05/28/24 04:45 05/28/24 04:45 Labs: Laboratory Results - last 24 hr 05/28/24 04:45 WBC 4.5 D RBC 3.02 L Hgb 11.1 L D Hct 31.9 L MCV 106 H MCH 36.8 H MCHC 34.8 RDW Std Deviation 62.1 H Plt Count 181 D Neut % (Auto) 56 Lymph % (Auto) 25 [place] % (Auto) 16 H Eos % (Auto) 2 Baso % (Auto) 1 Neut # (Auto) 2.5 Lymph # (Auto) 1.1 [place] # (Auto) 0.7 Eos # (Auto) 0.1 Baso # (Auto) 0.0 Immature Gran # (Auto) 0.02 H Absolute Nucleated RBC 0.00 Immature Gran % 0 Nucleated RBC % 0 Sodium 135 L Potassium 3.3 L Chloride 101 Carbon Dioxide 30.6 Anion Gap 3 L BUN < 5 L Creatinine 0.6 Estim Creat Clear Calc 146.0 eGFR > 60 BUN/Creatinine Ratio 8 L Glucose 102 Calculated Osmolality 267 L Calcium 8.5 Corrected Calcium 9.4 Phosphorus 4.0 Magnesium 2.3 Total Bilirubin 0.6 AST 59 H ALT 61 H Alkaline Phosphatase 56 Total Protein 4.5 L Albumin 2.9 L D Globulin 1.6 L Albumin/Globulin Ratio 1.8
[2024-05-29] VITALS (8 sets, daily range): BP systolic 103–125; BP diastolic 63–89; PULSE 69–98; RESP 16–99; TEMP 36.3–37; O2SAT 96–100
[2024-05-29] MEDS: KETOROLAC INJ 30 MG/ML VIAL 15 MG IVP (02:13)
--- NOTE | 2024-05-29 02:40 | XR_ITS ---
Examination: Venous duplex lower extremity sonogram, bilateral. Date and time of exam: May 29, 2024 0817 hrs. Indications: Onset bilateral calf tenderness and soreness beginning one week ago Technique: Multiple sonographic images of the deep venous system have been obtained. B-mode/2-D grayscale imaging of vascular structures and Doppler spectral analysis (waveforms) and color performed Both legs are examined. Findings: Deep venous systems do not demonstrate abnormal echogenicity. All visualized deep veins exhibit compressibility. All visualized deep veins exhibit augmentation. Impression: Negative for deep vein thrombosis
--- NOTE | 2024-05-29 02:40 | PC.NURSE ---
called Dr. Lindsey regarding patient's c/o swelling of his left food and pain in his left saha. Right foot is less swollen than the left foot. Patient admitted for generalized weakness, especially in his legs, being unable to stand and walk, has been crawling around his house. Patient is able to move legs but has severe weakness and has been unable to stand during hospital stay. Patient also requesting new nicotine patch. New orders received.
[2024-05-29] MEDS: NICOTINE PATCH 7 MG/24 HR PATCH.TD24 TOP (03:11)
[2024-05-29 05:38] LABS: Basophils % (Auto) 1 % (0-2.5); Eosinophils # (Auto) 0.2 Thou/mm3 (0.0-0.5); Eosinophils % (Auto) 4 % (0-10); Hematocrit 31.3 % (41.0-53.0); Hemoglobin 10.9 g/dL (13.5-16.0); Immature Granulocytes % (Auto) 0 % (0-0); Immature Granulocytes Auto 0.02 Thou/mm3 (0.00-0.00); Lymphocytes # (Auto) 1.2 Thou/mm3 (1.0-4.8); Lymphocytes % (Auto) 22 % (10-50); Mean Corpuscular HGB Conc 34.8 g/dl (31.0-37.0); Mean Corpuscular Hemoglobin 37.2 pg (25.0-35.0); Mean Corpuscular Volume 107 fL (80-100); Monocytes # (Auto) 0.8 Thou/mm3 (0.0-0.8); Monocytes % (Auto) 16 % (0-12); Neutrophils # (Auto) 2.9 Thou/mm3 (1.8-7.7); Neutrophils % (Auto) 57 % (37-80); Nucleated Red Blood Cell % 0 /100 WBC (0); Platelet Count 179 Thou/mm3 (140-440); RDW Standard Deviation 62.8 fL (35.1-43.9); Red Blood Count 2.93 Miln/mm3 (4.50-5.90); White Blood Count 5.2 Thou/mm3 (3.8-10.6)
[2024-05-29 06:19] LABS: Alanine Aminotransferase 46 U/L (10-49); Albumin, Serum 2.9 gm/dL (3.5-5.0); Albumin/Globulin Ratio 1.7 (1.2-2.2); Alkaline Phosphatase 51 U/L (46-116); Anion Gap 5 (7-16); Aspartate Amino Transferase 35 U/L (0-34); BUN/Creatinine Ratio 8 Ratio (12-20); Bilirubin,Total 0.5 mg/dL (0.3-1.2); Blood Urea Nitrogen < 5 mg/dL (9-23); Calcium 8.4 mg/dL (8.3-10.6); Calcium (Corrected) 9.3 mg/dL (8.5-10.1); Carbon Dioxide 27.2 mMol/L (20.0-31.0); Chloride 105 mMol/L (98-107); Creatinine (Component) 0.6 mg/dL (0.6-1.3); Globulin 1.7 gm/dL (2.3-3.5); Glucose 87 mg/dL (74-106); Magnesium 2.1 mg/dL (1.6-2.6); Osmolality,Calculated 270 (275-295); Phosphorous 3.8 mg/dL (2.4-5.1); Potassium 4.6 mMol/L (3.4-5.1); Sodium 137 mMol/L (136-145); Total Protein 4.6 gm/dL (5.7-8.2); eGFR > 60 See Note
[2024-05-29] MEDS: NICOTINE PATCH 21 MG/24 HR PATCH.TD24 TOP (09:05)
[2024-05-29] MEDS: FOLIC ACID 1 MG TABLET PO ×2 (09:06→22:43)
[2024-05-29] MEDS: ENOXAPARIN SOD INJ 40 MG/0.4 ML SYRINGE SC (09:06)
[2024-05-29] MEDS: chlordiazePOXIDE HCl 25 MG CAPSULE PO ×2 (13:25→22:43)
[2024-05-29] MEDS: THIAMINE INJ 500 MG in SODIUM CHLORIDE 0.9% 100 ML 202 MG IV ×2 (13:25→22:45)
--- NOTE | 2024-05-29 14:29 | ESPR_ITS ---
<Statement entered by Last Mitchell MD - 05/29/24 15:49> Patient was examined bedside this morning, patient is not able to ambulate. He is neuro examination is normal. But his complaints of weakness in his bilateral thighs. Will order West Nile encephalitis,. Will continue IV thiamine. Pending Dr Snyder's recommendation. Patient might need LP. I discussed with and supervised my co-resident involved in the care of this patient. I agree with the assessment and plan as documented above. Last Mitchell,PGY-3 Disclaimer: Despite multiple revisions, due to the dictation software being used, the document below may not be free of grammatical errors including phonetic/typographic errors. However, this does not deter from our commitment to providing health care in the patient's best interest in mind. Documentation for date of: 05/29/24 Subjective Subjective Interval history: Patient was seen and examined by the bedside. Patient reports feeling less weak, CIWA score 0, librium dose was decreased will continue to wean off as tolerated, but is unable to walk, reported pain in the legs overnight. PT recommended SNF placement. Received toradol overnight for pain. Dr. Snyder is following the patient, will consider further work-up such as LP. Continues to receive Thiamine. Hepatitis panel negative. HIV, West Nile Ig and RPR were ordered. PT continues to follow. Exam Vital Signs Temp Pulse Resp BP Pulse Ox O2 Del Method 97.5 F 85 17 115/63 100 Room Air 05/29/24 12:00 05/29/24 12:00 05/29/24 12:00 05/29/24 12:00 05/29/24 12:00 05/29/24 12:00 Narrative Exam Physical Exam General: Awake and in no acute distress. Conversational and non-toxic appearing. HEENT: Normocephalic, atraumatic, mucous membranes moist. Heart: Regular rate and rhythm, no murmurs. Lungs: Clear to auscultation with no wheezing or crackles. Abdomen: Soft, nondistended, nontender, positive bowel sounds. ?No guarding or rebound tenderness. Neurologic: Alert and oriented x3, strength in the upper extremities 5/5, lower extremities 4/5 in the upper muscle group, 5/5 in the lower muscle. Tendon reflexes symmetrical, 2+. Sensation intact. Babinski downgoing bilateral. Extremities: Hematoma and swelling on the left metatarsal area. Skin: No rash or ecchymoses. Objective Labs 05/29/24 05:11 05/29/24 05:11 Labs: Laboratory Results - last 24 hr 05/29/24 05:11 WBC 5.2 RBC 2.93 L Hgb 10.9 L Hct 31.3 L MCV 107 H MCH 37.2 H MCHC 34.8 RDW Std Deviation 62.8 H Plt Count 179 Neut % (Auto) 57 Lymph % (Auto) 22 [place] % (Auto) 16 H Eos % (Auto) 4 Baso % (Auto) 1 Neut # (Auto) 2.9 Lymph # (Auto) 1.2 [place] # (Auto) 0.8 Eos # (Auto) 0.2 Baso # (Auto) 0.0 Immature Gran # (Auto) 0.02 H Absolute Nucleated RBC 0.00 Immature Gran % 0 Nucleated RBC % 0 Sodium 137 Potassium 4.6 D Chloride 105 Carbon Dioxide 27.2 Anion Gap 5 L BUN < 5 L Creatinine 0.6 Estim Creat Clear Calc 146.0 eGFR > 60 BUN/Creatinine Ratio 8 L Glucose 87 Calculated Osmolality 270 L Calcium 8.4 Corrected Calcium 9.3 Phosphorus 3.8 Magnesium 2.1 Total Bilirubin 0.5 AST 35 H ALT 46 Alkaline Phosphatase 51 Total Protein 4.6 L Albumin 2.9 L Globulin 1.7 L Albumin/Globulin Ratio 1.7 Quality Measures Quality Measures VTE prophylaxis Assessment & Plan Assessment Current Active Medications: Generic Name Dose Route Start Last Admin Trade Name Freq PRN Reason Stop Dose Admin Acetaminophen 650 mg 05/27/24 13:55 05/28/24 19:11 Acetaminophen 325 Mg Tablet PO 06/26/24 13:54 650 mg Q6H PRN Administration Fever >101.5 Chlordiazepoxide HCl 25 mg 05/28/24 22:00 05/29/24 13:25 Chlordiazepoxide Hcl 25 Mg Capsule PO 06/02/24 21:59 25 mg TID RICARDO Administration Docusate Sodium 100 mg 05/27/24 13:55 Docusate Sod 100 Mg Capsule PO 06/26/24 13:54 QDAY PRN CONSTIPATION Protocol Enoxaparin Sodium 40 mg 05/28/24 09:00 05/29/24 09:06 Enoxaparin Sod Inj 40 Mg/0.4 Ml Syringe SC 06/11/24 08:59 40 mg QDAY RICARDO Administration Folic Acid 1 mg 05/27/24 21:00 05/29/24 09:06 Folic Acid 1 Mg Tablet PO 06/01/24 20:59 1 mg BID RICARDO Administration Thiamine HCl 500 mg/ Sodium 105 mls @ 202 mls/hr 05/28/24 22:00 05/29/24 13:25 Chloride IV 05/30/24 21:59 202 mls/hr TID RICARDO Administration Lorazepam 0.5 mg 05/27/24 14:03 Lorazepam 0.5 Mg Tablet PO 06/01/24 14:02 Q4HR PRN CIWA Score 2-6 Lorazepam 1 mg 05/27/24 14:03 05/28/24 22:06 Lorazepam 0.5 Mg Tablet PO 06/01/24 14:02 1 mg Q4HR PRN Administration CIWA SCORE 7-11 Lorazepam 2 mg 05/27/24 14:03 Lorazepam 0.5 Mg Tablet PO 06/01/24 14:02 Q4HR PRN CIWA SCORE 12-15 Nicotine 21 mg 05/27/24 14:15 05/29/24 09:05 Nicotine Patch 21 Mg/24 Hr Patch.Td24 TOP 06/26/24 14:14 21 mg QDAY RICARDO Administration Ondansetron HCl 4 mg 05/27/24 13:55 Ondansetron Inj 2 Mg/Ml Inj 2 Ml IV 06/26/24 13:54 Q6H PRN NAUSEA OR VOMITING Protocol Sennosides 1 tab 05/27/24 13:55 Senna Tablet PO 06/26/24 13:54 QDAY PRN constipation Protocol Plan The patient is a 24-year-old male with a previous medical history of alcohol abuse disorder and withdrawal seizures who came to the ED due to general body weakness that started few days ago, he noticed when he went to the restroom his legs were starting to really feel weak. He was admitted due to general weakness, hypokalemia. #Lower extremity weakness #Hypokalemia, resolved #Alcohol abuse disorder Patient has a history of eating one meal a day and drinking every day. Patient received 60 mEq of potassium chloride in the ED and was started on banana bag. Head and spine CT imaging was unremarkable. Plan: ? CIWA protocol, lorazepam as needed p.o. ? Chlordiazepoxide 25 mg 2 times daily ? Thiamine and folate p.o. ? Monitor daily CMP ?Refer to adoption social worker - Ordered HIV, West Nile Ig, RPR. - EMG outpatient #Lower extremity weakness #Chronic polyneuropathy Most likely in the setting of hypokalemia, vitamin deficiency and chronic alcohol intake. Tendon reflexes are low, muscle tonus is normal. - Thiamine PO and IV - Regular diet - Follow-up with neurologist Dr. Snyder - PT #Macrocytic anemia Most likely in the setting of folate deficiency caused by poor oral intake. Labs show low level of folate. Plan: ? folate p.o. daily #Elevated transaminases, improving Most likely due to alcohol abuse. Plan: - monitor daily CMP #Chronic smoker Patient showed interest in cutting down smoking. Plan: ? Nicotine patch 21 mg daily Health maintenance: FEN: regular DVT prophylaxis: lovenox 40 sc once GI prophylaxis: none Dispo: med tele CODE STATUS: Full code Plan of care discussed with attending Dr. Moreau and PGY-[address] Mitchell. Leslee Lazo MD, PGY 1. Attending Provider Attestation/Addendum Milana, Valery Moreau, DO, attest that I was physically present for the samaniego portions of the service and evaluated the patient with the resident and I reviewed and discussed the case with the resident and agree with the resident's findings and plans of care as documented above Patient seen and eval this a.m. He is tearful and is anxious to go home. Patient initially considered leaving AGAINST MEDICAL ADVICE, but states that his parents will not pick him up and have nowhere to go up. Patient states he feels slightly improved on thiamine. However, he continues to have inability to stand. Per nursing, patient crawled to the bathroom overnight without calling for help. His muscle strength is intact, but unable to stand. Gross sensation is also intact. He denies any saddle anesthesia. Patient denied any recent flu illness. He had an episode of diarrhea on the day that he had come to the hospital, but no other symptoms that may raise the concern for possible GBS. [place] no tick borne diseases in the past. Will follow-up with neurology recommendations and continue with high-dose thiamine as thiamine deficiency due to poor p.o. intake and chronic alcohol use may lead to peripheral neuropathy and gait disturbance.
[2024-05-29 15:53] LABS: Syphilis Nonreactive (Nonreactive)
[2024-05-29 16:32] LABS: HIV (1&2) Antibody Rapid Non-Reactive
--- NOTE | 2024-05-29 19:58 | PC.NURSE ---
Dr. Snyder at bedside doing lumbar tap on the pt.
[2024-05-29 20:33] LABS: Coccid Serology, CF CSF (UCD)* See Sep Rpt
[2024-05-29 20:58] LABS: Glucose,CSF 62 mg/dL (40-70); Protein Total,CSF 58 mg/dL (8-32)
[2024-05-29 21:09] LABS: CSF Red Blood Cell 0 /cmm; CSF White Blood Cell 0 /cmm
[2024-05-29 21:11] LABS: CSF Cell Count Tube # Tube # 4; CSF Color Colorless (Colorless); CSF Mononuclear 0 %
[2024-05-29 21:15] LABS: CSF Polynuclear WBC 0 %; CSF, Appearance Clear (Clear)
--- NOTE | 2024-05-29 22:44 | ESPR_ITS ---
Documentation for date of: 05/29/24 Subjective Subjective Interval history: Mr. Fong was seen in [facility] today, continues to have weakness in both LE distally more than proximally, has hard time standing up and using the commode. No paresthesias/radicular pain from the lower back or bladder or bowel control. No UE symptoms reported. Exam - Neurology Vital Signs Temp Pulse Resp BP Pulse Ox O2 Del Method 97.3 F 75 19 125/89 H 99 Room Air 05/29/24 20:00 05/29/24 20:00 05/29/24 20:00 05/29/24 20:00 05/29/24 20:00 05/29/24 20:00 Narrative Exam GENERAL APPEARANCE: Well hydrated, well-nourished in no acute distress. HEENT: Normocephalic, atraumatic, extraocular movements intact. Pupils: Equal reacting to light and accommodation, no nystagmus noted NECK: Supple, no JVD or bruits. CARDIOVASULAR: Heart: S1, S2 heard, regular without S3-S4 or murmur no rubs or gallops. LUNGS/CHEST: Clear to auscultation bilaterally. No rails, rhonchi, or wheezing. Normal inspection. ABDOMEN: Soft, nontender, with normal bowel sounds. No pulsatile masses. No rebound, rigidity, or guarding. Normal inspection and palpation. EXTREMITIES: Normal inspection and palpation. No edema, clubbing or cyanosis. SKIN: Warm and dry without rashes. Normal inspection. MUSCULOSKELETAL: No cervical, thoracic, lumbar or midline bony tenderness. Normal inspection. NEURO: Alert, awake and oriented x3. Cranial nerves: II through XII grossly intact. Speech and language: Normal with no dysarthria or dysphasia. Motor system: Tone and bulk: Normal: Strength: Moves all 4 extremities; No pronator drift noted. But significant weakness in the lower extremities both proximally and distally. He has bilateral foot drop. deep tendon reflexes: 1+ bilaterally symmetrical. Plantar reflex: Downgoing bilaterally. Sensory system: Intact to all modalities of sensation bilaterally. Coordination: Intact to [id number] and [id number] test bilaterally. No ataxia, no dysmetria, or dysdiadochokinesia noted. No intention tremors noted. Gait: Not tested. No signs of meningeal irritation noted. PSYCHIATRIC: Normal mood and affect. Objective Labs 05/29/24 05:11 05/29/24 05:11 Labs: Laboratory Results - last 24 hr 05/29/24 05/29/24 05/29/24 05:11 14:57 20:21 WBC 5.2 RBC 2.93 L Hgb 10.9 L Hct 31.3 L MCV 107 H MCH 37.2 H MCHC 34.8 RDW Std Deviation 62.8 H Plt Count 179 Neut % (Auto) 57 Lymph % (Auto) 22 [place] % (Auto) 16 H Eos % (Auto) 4 Baso % (Auto) 1 Neut # (Auto) 2.9 Lymph # (Auto) 1.2 [place] # (Auto) 0.8 Eos # (Auto) 0.2 Baso # (Auto) 0.0 Immature Gran # (Auto) 0.02 H Absolute Nucleated RBC 0.00 Immature Gran % 0 Nucleated RBC % 0 Sodium 137 Potassium 4.6 D Chloride 105 Carbon Dioxide 27.2 Anion Gap 5 L BUN < 5 L Creatinine 0.6 Estim Creat Clear Calc 146.0 eGFR > 60 BUN/Creatinine Ratio 8 L Glucose 87 Calculated Osmolality 270 L Calcium 8.4 Corrected Calcium 9.3 Phosphorus 3.8 Magnesium 2.1 Total Bilirubin 0.5 AST 35 H ALT 46 Alkaline Phosphatase 51 Total Protein 4.6 L Albumin 2.9 L Globulin 1.7 L Albumin/Globulin Ratio 1.7 CSF Appearance Clear CSF Color Colorless CSF WBC 0 CSF RBC 0 CSF Cell Count Tube # Tube # 4 CSF Mononuclear WBCs 0 CSF Polynuclear WBCs 0 CSF Glucose 62 CSF Total Protein 58 H Syphilis Serology Nonreactive HIV 1&2 Antibody Rapid Non-Reactive Assessment & Plan Assessment and plan (1) Acute hypokalemia: Status: Acute Assessment and plan: suspected Low potassium of 2.6 could be contributing to generalized weakness. Agreed with replacing potassium and monitoring it closely. But as the weakness persisted, he needs to get worked up. (2) Alcoholism: Status: Chronic Assessment and plan: Advised alcohol cessation However patient does not think that it is a problem at all as he has done this for a long time and it does help him relax (3) Bilateral leg weakness: Status: Acute Assessment and plan: Most likely secondary to hypokalemia/acute on chronic myopathy/neuropathy from chronic alcoholism (4) Peripheral neuropathy: Status: Acute Assessment and plan: most likely from acute/subacute bilateral foot drop in chronic alcoholism. CSF analysis to rule out GBS (atypical), if sig protein elevation, he will be started on IVIG therapy for 5 days. Continue with the vitamin supplementation: thiamin, Folic acid and Vitamin D and B12. He would need EMG nerve conduction study of both upper extremities and lower extremities to evaluate for the extent of neuropathy. He would need lifestyle changes with the dietary modification, B complex and vitamin D supplementation, and alcohol cessation.
--- NOTE | 2024-05-29 22:44 | PD.EVENT ---
Documentation for date of: 05/29/24 Date of procedure: 05/29/24 Pre-op diagnosis: AIDP Post-op diagnosis: Other Consent signed by: patient Position: lateral decubitus Prep: betadine Anesthesia: 1 % Lidocaine Sedation: none Needle size: 22ga Needle length: 3.5 Interspace: L3-4 Number of attempts: 1 Opening pressure: not done Fluids mLs collected: 14 Fluid description: clear Complications: No Patient tolerance: tolerated well. Procedure performed by: Shola Snyder Condition: Stable
[2024-05-29] MEDS: LORazepam 0.5 MG TABLET PO (23:27)
[2024-05-30] VITALS (11 sets, daily range): BP systolic 118–143; BP diastolic 73–94; PULSE 60–90; RESP 14–99; TEMP 36.3–36.7; O2SAT 95–99; BMI 13.0; BMI 20.8
--- NOTE | 2024-05-30 00:39 | PC.NURSE ---
Pt is complaining of swelling and aching pain in his bilateral feet. Notify MD Freed. No new orders made.
[2024-05-30 00:41] LABS: CSF Gram Stain Alert Gram Stain Completed
[2024-05-30] MEDS: KETOROLAC INJ 30 MG/ML VIAL 15 MG IVP (00:56)
[2024-05-30] MEDS: ACETAMINOPHEN 325 MG TABLET 650 MG PO (03:24)
--- NOTE | 2024-05-30 03:26 | PC.NURSE ---
Accessed chart to assist primary nurse.
[2024-05-30] MEDS: LORazepam 0.5 MG TABLET 1 MG PO (04:55)
[2024-05-30] MEDS: THIAMINE INJ 500 MG in SODIUM CHLORIDE 0.9% 100 ML 202 MG IV ×2 (05:00→13:26)
[2024-05-30 05:46] LABS: Basophils # (Auto) 0.1 Thou/mm3 (0.0-0.2); Basophils % (Auto) 1 % (0-2.5); Eosinophils # (Auto) 0.2 Thou/mm3 (0.0-0.5); Eosinophils % (Auto) 2 % (0-10); Hematocrit 34.6 % (41.0-53.0); Hemoglobin 11.9 g/dL (13.5-16.0); Immature Granulocytes % (Auto) 0 % (0-0); Immature Granulocytes Auto 0.03 Thou/mm3 (0.00-0.00); Lymphocytes # (Auto) 0.9 Thou/mm3 (1.0-4.8); Lymphocytes % (Auto) 13 % (10-50); Mean Corpuscular HGB Conc 34.4 g/dl (31.0-37.0); Mean Corpuscular Hemoglobin 36.7 pg (25.0-35.0); Mean Corpuscular Volume 107 fL (80-100); Monocytes % (Auto) 13 % (0-12); Neutrophils # (Auto) 5.2 Thou/mm3 (1.8-7.7); Neutrophils % (Auto) 71 % (37-80); Nucleated Red Blood Cell % 0 /100 WBC (0); Platelet Count 206 Thou/mm3 (140-440); RDW Standard Deviation 63.2 fL (35.1-43.9); Red Blood Count 3.24 Miln/mm3 (4.50-5.90); White Blood Count 7.3 Thou/mm3 (3.8-10.6)
[2024-05-30 06:58] LABS: Alanine Aminotransferase 49 U/L (10-49); Albumin, Serum 3.4 gm/dL (3.5-5.0); Albumin/Globulin Ratio 1.7 (1.2-2.2); Alkaline Phosphatase 60 U/L (46-116); Anion Gap 8 (7-16); Aspartate Amino Transferase 41 U/L (0-34); BUN/Creatinine Ratio 7 Ratio (12-20); Bilirubin,Total 0.9 mg/dL (0.3-1.2); Blood Urea Nitrogen < 5 mg/dL (9-23); Calcium 9.1 mg/dL (8.3-10.6); Calcium (Corrected) 9.6 mg/dL (8.5-10.1); Carbon Dioxide 22.8 mMol/L (20.0-31.0); Chloride 105 mMol/L (98-107); Creatinine (Component) 0.7 mg/dL (0.6-1.3); Estimated Creatinine Clearance 125.2 mL/min (>60); Glucose 78 mg/dL (74-106); Osmolality,Calculated 268 (275-295); Phosphorous 4.4 mg/dL (2.4-5.1); Potassium 4.8 mMol/L (3.4-5.1); Sodium 136 mMol/L (136-145); Total Protein 5.4 gm/dL (5.7-8.2); eGFR > 60 See Note
[2024-05-30] MEDS: FOLIC ACID 1 MG TABLET PO ×2 (10:20→20:29)
[2024-05-30] MEDS: ENOXAPARIN SOD INJ 40 MG/0.4 ML SYRINGE SC (10:20)
[2024-05-30] MEDS: chlordiazePOXIDE HCl 25 MG CAPSULE PO (10:20)
[2024-05-30] MEDS: NICOTINE PATCH 21 MG/24 HR PATCH.TD24 TOP ×2 (10:21→20:29)
[2024-05-30] MEDS: CHOLECALCIFEROL (Vitamin D3) 1,000 IU TABLET 1000 IU PO (11:16)
--- NOTE | 2024-05-30 11:19 | PC.SS ---
SS met with patient at bedside to discuss discharge plan, patient refusing SNF. SS informed him that his mother did not want him to discharge back home and is requesting for patient to discharge to SNF. Patient upset and stated, fine I'll go to a Rehab facility . SS submitted inquiry to all local facilities through [employer] platform.
--- NOTE | 2024-05-30 12:27 | PC.SS ---
Addendum entered by Ada Carroll 05/30/24 16:15: SS was contacted by Kitty in [facility] and she informed that Floresita is the case folder assigned to this patient. SS contacted Floresita at [phone]. SS faxed all Clinicals again to [phone]. Floresita informed SS she would submit for auth, however patient is to young to discharge to SNF. Floresita informed SS she would contact SS tomorrow. SS will follow up for further needs. Addendum entered by Ada Carroll 05/30/24 13:55: SS attempted to contact Kitty from [facility]. SS left Voicemail with contact Number. Addendum entered by Ada Carroll 05/30/24 13:03: SS sent PASSR LVL 1 through File exchange to [facility]. Addendum entered by Ada Carroll 05/30/24 12:32: SS faxed Clinicals to [facility] to obtain auth, however updated PT notes still pending, SS will fax to [facility] once available. Original Note: SS met with patient and patient's mother and father in regards to discharge planning. Chosen SNF is [facility]. SS will submit for auth and send Passr to Jacque from [facility].
--- NOTE | 2024-05-30 13:45 | ESPR_ITS ---
<Statement entered by Last Mitchell MD - 05/30/24 14:54> Patient was examined bedside this morning, Dr Snyder did LP yesterday his protein was 58. she recommended protein is not high to start Ivig, it is most likely acute bilateral peroneal neuropathy leading to bilateral foot drop sec to alcoholism. he will need physical therapy and walk with AFO .steroid will also not play role. he needs t continue thiamine, b12, folic acid 1mg with vit D. and out patient EMG and NCS . His parents were updated about the plan. Physical therapy recommended residential facility. Patient initially hesitant to go to SNF but agreed later . Pending insurance authorization for SNF. I discussed with and supervised my co-resident involved in the care of this patient. I agree with the assessment and plan as documented above. Last Mitchell,PGY-3 Disclaimer: Despite multiple revisions, due to the dictation software being used, the document below may not be free of grammatical errors including phonetic/typographic errors. However, this does not deter from our commitment to providing health care in the patient's best interest in mind. Documentation for date of: 05/30/24 Subjective Subjective Interval history: Patient was seen and examined by the bedside. Yesterday patient was anxious and wanted to leave against medical advice, but did not have a ride home and after discussion regarding the plan of care, decided to stay. Patient continues, CIWA score 0, weening off librium as tolerated, but is unable to walk, reported pain in the legs overnight. PT recommended SNF placement, pending authorization. Again received toradol overnight for pain. Dr. Snyder is following the patient, LP was done 05/30/24, protein level 58, glucose is normal, otherwise cytology unremarkable, other test such as albumin, Ig G, myelin basic protein pending. Continues to receive Thiamine. HIV and RPR negative, West Nile Ig pending. PT continues to follow, recommended SNF placement, patient initially declined, but agreed. SNF authorization's pending. Plan of discharge was also discussed with parents and apprpriate time was given to ask question, all question answered. They were encouraged to to reach out if they want to ask questions. Will discontinue Librium tomorrow. Exam Vital Signs Temp Pulse Resp BP Pulse Ox O2 Del Method 97.3 F 78 17 136/88 H 99 Room Air 05/30/24 11:52 05/30/24 12:00 05/30/24 11:52 05/30/24 11:52 05/30/24 11:52 05/30/24 11:52 Narrative Exam Physical Exam General: Awake and in no acute distress. Conversational and non-toxic appearing. HEENT: Normocephalic, atraumatic, mucous membranes moist. Heart: Regular rate and rhythm, no murmurs. Lungs: Clear to auscultation with no wheezing or crackles. Abdomen: Soft, nondistended, nontender, positive bowel sounds. ?No guarding or rebound tenderness. Neurologic: Alert and oriented x3, strength in the upper extremities 5/5, lower extremities 4/5 in the upper muscle group, 5/5 in the lower muscle. Tendon reflexes symmetrical, 1+. Sensation intact. Babinski downgoing bilateral. Extremities: Hematoma and swelling on the left metatarsal area. Skin: No rash or ecchymoses. Objective Labs 05/31/24 05:10 05/31/24 05:10 Labs: Laboratory Results - last 24 hr 05/29/24 05/29/24 05/30/24 14:57 20:21 05:39 WBC 7.3 D RBC 3.24 L Hgb 11.9 L Hct 34.6 L MCV 107 H MCH 36.7 H MCHC 34.4 RDW Std Deviation 63.2 H Plt Count 206 Neut % (Auto) 71 Lymph % (Auto) 13 [place] % (Auto) 13 H Eos % (Auto) 2 Baso % (Auto) 1 Neut # (Auto) 5.2 Lymph # (Auto) 0.9 L [place] # (Auto) 1.0 H Eos # (Auto) 0.2 Baso # (Auto) 0.1 Immature Gran # (Auto) 0.03 H Absolute Nucleated RBC 0.00 Immature Gran % 0 Nucleated RBC % 0 Sodium 136 Potassium 4.8 Chloride 105 Carbon Dioxide 22.8 Anion Gap 8 BUN < 5 L Creatinine 0.7 Estim Creat Clear Calc 125.2 eGFR > 60 BUN/Creatinine Ratio 7 L Glucose 78 Calculated Osmolality 268 L Calcium 9.1 Corrected Calcium 9.6 Phosphorus 4.4 Magnesium 2.0 Total Bilirubin 0.9 AST 41 H ALT 49 Alkaline Phosphatase 60 Total Protein 5.4 L Albumin 3.4 L D Globulin 2.0 L Albumin/Globulin Ratio 1.7 CSF Appearance Clear CSF Color Colorless CSF WBC 0 CSF RBC 0 CSF Cell Count Tube # Tube # 4 CSF Mononuclear WBCs 0 CSF Polynuclear WBCs 0 CSF Glucose 62 CSF Total Protein 58 H Syphilis Serology Nonreactive HIV 1&2 Antibody Rapid Non-Reactive Quality Measures Quality Measures VTE prophylaxis Assessment & Plan Assessment Current Active Medications: Generic Name Dose Route Start Last Admin Trade Name Freq PRN Reason Stop Dose Admin Acetaminophen 650 mg 05/30/24 09:51 Acetaminophen 325 Mg Tablet PO 06/26/24 13:54 Q6H PRN Fever >100.3 Chlordiazepoxide HCl 25 mg 05/29/24 21:00 05/30/24 10:20 Chlordiazepoxide Hcl 25 Mg Capsule PO 06/03/24 20:59 25 mg BID RICARDO Administration Docusate Sodium 100 mg 05/27/24 13:55 Docusate Sod 100 Mg Capsule PO 06/26/24 13:54 QDAY PRN CONSTIPATION Protocol Enoxaparin Sodium 40 mg 05/28/24 09:00 05/30/24 10:20 Enoxaparin Sod Inj 40 Mg/0.4 Ml Syringe SC 06/11/24 08:59 40 mg QDAY RICARDO Administration Folic Acid 1 mg 05/27/24 21:00 05/30/24 10:20 Folic Acid 1 Mg Tablet PO 06/01/24 20:59 1 mg BID RICARDO Administration Thiamine HCl 500 mg/ Sodium 105 mls @ 202 mls/hr 05/28/24 22:00 05/30/24 13:26 Chloride IV 05/30/24 21:59 202 mls/hr TID RICARDO Administration Lorazepam 0.5 mg 05/27/24 14:03 05/29/24 23:27 Lorazepam 0.5 Mg Tablet PO 06/01/24 14:02 0.5 mg Q4HR PRN Administration CIWA Score 2-6 Lorazepam 1 mg 05/27/24 14:03 05/30/24 04:55 Lorazepam 0.5 Mg Tablet PO 06/01/24 14:02 1 mg Q4HR PRN Administration CIWA SCORE 7-11 Lorazepam 2 mg 05/27/24 14:03 Lorazepam 0.5 Mg Tablet PO 06/01/24 14:02 Q4HR PRN CIWA SCORE 12-15 Nicotine 21 mg 05/27/24 14:15 05/30/24 10:21 Nicotine Patch 21 Mg/24 Hr Patch.Td24 TOP 06/26/24 14:14 21 mg QDAY RICARDO Administration Ondansetron HCl 4 mg 05/27/24 13:55 Ondansetron Inj 2 Mg/Ml Inj 2 Ml IV 06/26/24 13:54 Q6H PRN NAUSEA OR VOMITING Protocol Sennosides 1 tab 05/27/24 13:55 Senna Tablet PO 06/26/24 13:54 QDAY PRN constipation Protocol Vitamin D 1,000 iu 05/30/24 10:45 05/30/24 11:16 Cholecalciferol (Vitamin D3) 1,000 Iu Tablet PO 06/29/24 10:44 1,000 iu QDAY RICARDO Administration Plan The patient is a 24-year-old male with a previous medical history of alcohol abuse disorder and withdrawal seizures who came to the ED due to general body weakness that started few days ago, he noticed when he went to the restroom his legs were starting to really feel weak. He was admitted due to general weakness, hypokalemia. #Lower extremity weakness #Chronic peripheral peroneal neuropathy 05/30/2024: LP, CSF cytology unremarkable, low suspicion for AIDP. Most likely patient has a peripheral neuropathy in the setting of alcohol abuse and poor oral intake. Most likely in the setting of hypokalemia, vitamin deficiency and chronic alcohol intake. Tendon reflexes are low, muscle tonus is normal. - Thiamine PO and IV - IV thiamine 500 mg IV today, then 250 mg IV - Vitamin D 1000 U daily - Folate 1 mg daily p.o. - Regular diet - Follow-up with neurologist Dr. Snyder - PT - EMG and NCS outpatient #Hypokalemia, resolved #Alcohol abuse disorder Patient has a history of eating one meal a day and drinking every day. Patient received 60 mEq of potassium chloride in the ED and was started on banana bag. Head and spine CT imaging was unremarkable. HIV, RPR negative, West Nile Ig pending. Plan: ? CIWA protocol, lorazepam as needed p.o. ? Chlordiazepoxide 25 mg daily, wean off gradually, discontinue tomorrow ? Thiamine and folate p.o. ? Monitor daily CMP ?Refer to director of social work #Macrocytic anemia Most likely in the setting of folate deficiency caused by poor oral intake. Labs show low level of folate. Plan: ? folate p.o. daily #Elevated transaminases, improving Most likely due to alcohol abuse. Plan: - monitor daily CMP #Chronic smoker Patient showed interest in cutting down smoking. Plan: ? Nicotine patch 21 mg daily Health maintenance: FEN: regular DVT prophylaxis: lovenox 40 sc once GI prophylaxis: none Dispo: med tele, pending SNF placement CODE STATUS: Full code Plan of care discussed with attending Dr. Moreau and PGY-[address] Mitchell. Leslee Lazo MD, PGY 1. Attending Provider Attestation/Addendum I, Valery Moreau, DO, attest that I was physically present for the samaniego portions of the service and evaluated the patient with the resident and I reviewed and discussed the case with the resident and agree with the resident's findings and plans of care as documented above Patient seen and eval this a.m. Underwent LP last night with mildly elevated protein level of 58. However, per neuro, low suspicion for GBS. Patient completed thiamine IV. Will continue with oral supplementation. Patient states he is feeling well, but still unable to walk. Patient is frustrated and wants to go to home. However SNF was recommended by PT. Parents hoping that patient can go to SNF. Will have director of social work to arrange for SNF placement. Will continue to taper Librium as well. CIWA score of 1 currently. Neuroexam remains unchanged. Left patellar DTR appears brisk, but 2 out of 4 his bilateral radial and right patellar DTRs.
[2024-05-30] MEDS: LORazepam 0.5 MG TABLET PO (20:29)
[2024-05-30] MEDS: GABAPENTIN 100 MG CAPSULE PO (21:01)
[2024-05-31] VITALS: BP 144/98; PULSE 80; PULSE 86; RESP 13; TEMP 37.3; O2SAT 98
[2024-05-31 04:00] VITALS: BP 138/86; PULSE 72; PULSE 80; RESP 11; TEMP 37; O2SAT 98
[2024-05-31] MEDS: GABAPENTIN 100 MG CAPSULE PO (05:29)
[2024-05-31 05:30] VITALS: PULSE 70; RESP 14; RESP 95
[2024-05-31 05:57] LABS: Basophils # (Auto) 0.1 Thou/mm3 (0.0-0.2); Basophils % (Auto) 1 % (0-2.5); Eosinophils # (Auto) 0.2 Thou/mm3 (0.0-0.5); Eosinophils % (Auto) 3 % (0-10); Hematocrit 33.3 % (41.0-53.0); Hemoglobin 11.5 g/dL (13.5-16.0); Immature Granulocytes % (Auto) 0 % (0-0); Immature Granulocytes Auto 0.02 Thou/mm3 (0.00-0.00); Lymphocytes % (Auto) 18 % (10-50); Mean Corpuscular HGB Conc 34.5 g/dl (31.0-37.0); Mean Corpuscular Hemoglobin 36.9 pg (25.0-35.0); Mean Corpuscular Volume 107 fL (80-100); Monocytes # (Auto) 0.9 Thou/mm3 (0.0-0.8); Monocytes % (Auto) 15 % (0-12); Neutrophils # (Auto) 3.8 Thou/mm3 (1.8-7.7); Neutrophils % (Auto) 63 % (37-80); Nucleated Red Blood Cell % 0 /100 WBC (0); Platelet Count 212 Thou/mm3 (140-440); RDW Standard Deviation 62.7 fL (35.1-43.9); Red Blood Count 3.12 Miln/mm3 (4.50-5.90)
[2024-05-31 07:08] LABS: Alanine Aminotransferase 42 U/L (10-49); Albumin, Serum 3.2 gm/dL (3.5-5.0); Albumin/Globulin Ratio 1.7 (1.2-2.2); Alkaline Phosphatase 49 U/L (46-116); Anion Gap 6 (7-16); Aspartate Amino Transferase 37 U/L (0-34); BUN/Creatinine Ratio 8 Ratio (12-20); Bilirubin,Total 0.7 mg/dL (0.3-1.2); Blood Urea Nitrogen < 5 mg/dL (9-23); Calcium 8.9 mg/dL (8.3-10.6); Calcium (Corrected) 9.5 mg/dL (8.5-10.1); Carbon Dioxide 24.8 mMol/L (20.0-31.0); Chloride 106 mMol/L (98-107); Creatinine (Component) 0.6 mg/dL (0.6-1.3); Globulin 1.9 gm/dL (2.3-3.5); Glucose 84 mg/dL (74-106); Osmolality,Calculated 270 (275-295); Potassium 4.2 mMol/L (3.4-5.1); Sodium 137 mMol/L (136-145); Total Protein 5.1 gm/dL (5.7-8.2); eGFR > 60 See Note
[2024-05-31 08:00] VITALS: BP 129/82; PULSE 88; RESP 16; TEMP 36.7; O2SAT 93
[2024-05-31] MEDS: chlordiazePOXIDE HCl 25 MG CAPSULE PO (09:19)
[2024-05-31] MEDS: ENOXAPARIN SOD INJ 40 MG/0.4 ML SYRINGE SC (09:19)
[2024-05-31] MEDS: THIAMINE INJ 250 MG in SODIUM CHLORIDE 0.9% 100 ML 205 MG IV (09:20)
[2024-05-31] MEDS: FOLIC ACID 1 MG TABLET PO (09:22)
[2024-05-31] MEDS: NICOTINE PATCH 21 MG/24 HR PATCH.TD24 TOP (09:23)
[2024-05-31] MEDS: CHOLECALCIFEROL (Vitamin D3) 1,000 IU TABLET 1000 IU PO (09:30)
--- NOTE | 2024-05-31 09:37 | PD.RESPRO ---
Documentation for date of: 05/31/24 Exam Vital Signs Temp Pulse Resp BP Pulse Ox O2 Del Method 98.0 F 88 16 129/82 93 L Room Air 05/31/24 08:00 05/31/24 08:00 05/31/24 08:00 05/31/24 08:00 05/31/24 08:00 05/31/24 08:00 Narrative Exam Constitutional: Alert and oriented to person, place and time. Seen resting in bed CHEST: Symmetrical, atraumatic, and with equal expansion , Nontender on palpation no deformity and no crepitus. CARDIOVASCULAR: Heart regular rhythm no murmur or gallop rub or extra beats. LUNGS: Clear to auscultation bilaterally with symmetrical chest rise.? No laboring tachypnea or wheezing.? No intercostal subcostal retraction.? No rales and no rhonchi. ABDOMEN: Soft, flat, nontender to palpation, no guarding or rebound tenderness.? There are no abnormal masses palpated.? Active and normal bowel sounds. EXTREMITIES: Patient had discomfort of legs bilaterally. Sensation to light touch intact to upper and lower extremity. Proprioception intact. NEURO: Patient is GARCIA x 4, Patient had bilateral horizontal nystagmus on exam.?All other cranial nerves grossly intact. GCS is 15. Strength testin/5 in upper extremities bilaterally. Patient has bilateral foot drop. 4/5 strength with leg flexion and extension. 3/5 strength with hip flexion Objective Labs 05/31/24 05:10 05/31/24 05:10 Labs: Laboratory Results - last 24 hr 05/31/24 05:10 WBC 6.0 RBC 3.12 L Hgb 11.5 L Hct 33.3 L MCV 107 H MCH 36.9 H MCHC 34.5 RDW Std Deviation 62.7 H Plt Count 212 Neut % (Auto) 63 Lymph % (Auto) 18 [place] % (Auto) 15 H Eos % (Auto) 3 Baso % (Auto) 1 Neut # (Auto) 3.8 Lymph # (Auto) 1.0 [place] # (Auto) 0.9 H Eos # (Auto) 0.2 Baso # (Auto) 0.1 Immature Gran # (Auto) 0.02 H Absolute Nucleated RBC 0.00 Immature Gran % 0 Nucleated RBC % 0 Sodium 137 Potassium 4.2 D Chloride 106 Carbon Dioxide 24.8 Anion Gap 6 L BUN < 5 L Creatinine 0.6 Estim Creat Clear Calc 146.0 eGFR > 60 BUN/Creatinine Ratio 8 L Glucose 84 Calculated Osmolality 270 L Calcium 8.9 Corrected Calcium 9.5 Total Bilirubin 0.7 AST 37 H ALT 42 Alkaline Phosphatase 49 Total Protein 5.1 L Albumin 3.2 L Globulin 1.9 L Albumin/Globulin Ratio 1.7 Quality Measures Quality Measures VTE prophylaxis Assessment & Plan Assessment Current Active Medications: Generic Name Dose Route Start Last Admin Trade Name Freq PRN Reason Stop Dose Admin Acetaminophen 650 mg 05/30/24 09:51 Acetaminophen 325 Mg Tablet PO 06/26/24 13:54 Q6H PRN Fever >100.3 Docusate Sodium 100 mg 05/27/24 13:55 Docusate Sod 100 Mg Capsule PO 06/26/24 13:54 QDAY PRN CONSTIPATION Protocol Enoxaparin Sodium 40 mg 05/28/24 09:00 05/31/24 09:19 Enoxaparin Sod Inj 40 Mg/0.4 Ml Syringe SC 06/11/24 08:59 40 mg QDAY RICARDO Administration Folic Acid 1 mg 05/31/24 09:00 05/31/24 09:22 Folic Acid 1 Mg Tablet PO 06/05/24 08:59 1 mg DAILY RICARDO Administration Gabapentin 100 mg 05/30/24 22:00 05/31/24 05:29 Gabapentin 100 Mg Capsule PO 06/29/24 21:59 100 mg TID RICARDO Administration Thiamine HCl 250 mg/ Sodium 102.5 mls @ 205 mls/hr 05/31/24 09:00 05/31/24 09:20 Chloride IV 06/30/24 08:59 205 mls/hr QDAY RICARDO Administration Nicotine 21 mg 05/27/24 14:15 05/31/24 09:23 Nicotine Patch 21 Mg/24 Hr Patch.Td24 TOP 06/26/24 14:14 21 mg QDAY RICARDO Administration Ondansetron HCl 4 mg 05/27/24 13:55 Ondansetron Inj 2 Mg/Ml Inj 2 Ml IV 06/26/24 13:54 Q6H PRN NAUSEA OR VOMITING Protocol Sennosides 1 tab 05/27/24 13:55 Senna Tablet PO 06/26/24 13:54 QDAY PRN constipation Protocol Vitamin D 1,000 iu 05/30/24 10:45 05/31/24 09:30 Cholecalciferol (Vitamin D3) 1,000 Iu Tablet PO 06/29/24 10:44 1,000 iu QDAY RICARDO Administration
--- NOTE | 2024-05-31 10:35 | PC.SS ---
SS follow up note; Patient is pending Neuro Rec's as well as Pending Auth for patient to discharge to [facility].
--- NOTE | 2024-05-31 10:46 | PC.SS ---
Addendum entered by Ada Carroll 05/31/24 13:25: SS follow up note; [facility] transportation will be transporting patient to [facility] at 1500. Addendum entered by Ada Carroll 05/31/24 11:24: SS follow up note; SS was contacted by Floresita from [facility], she reported she spoke to Jacque from [facility] and will send over authorization for patient to discharge to [facility]. SS set up transportation with [facility] # [id number]. Addendum entered by Ada Carroll 05/31/24 10:56: SS follow up note; SS was contacted by Floresita Original Note: SS follow up note; SS attempted to contact Kitty as well melanie Díaz from [facility]. SS left Voice Mail with call back number.
--- NOTE | 2024-05-31 10:56 | ESDS_ITS ---
<Statement entered by Valery Moreau DO - 05/31/24 16:28> I, Valery Moreau DO, attest that I was physically present for the samaniego portions of the service and evaluated the patient with the resident and I reviewed and discussed the case with the resident and agree with the resident's findings and plans of care as documented above <Statement entered by Rajinder Salinas MD - 05/31/24 14:15> I saw and examined the patient, and I agree with current management stated by Dr Maren MD,PGY1. Plan of care was discussed with the attending physician and resident physician. Disclaimer: Despite multiple revisions, due to the dictation software being used, the document bellow may not be free of grammatical errors including phonetic/typographic errors. However, this does not deter from our commitment to providing health care in the patient's best interest in mind. Dr. Brad MD, PGY 2 Planned Discharge Date 05/31/24 DS: Providers Provider Date of admission: 05/27/24 13:55 Primary care physician: Physician No Primary/Family Admitting Provider: Kaiser Patel MD Attending Provider on Admission: Valery Moreau DO Consults: 05/27/24 12:52 Consult to Neurology / Tele-Neurology Stat Comment: Consulting Provider: Shola Snyder 05/27/24 21:18 Referral Physical Therapy Routine Comment: Physician Instructions: Referral Respiratory Therapy Routine Comment: Attending Provider on DC: Valery Moreau DO Discharging Provider: Selwyn Engel MD DS: Diagnosis Problem List Completed Was Problem List Reviewed/Reconciled?: Yes Hospital Course Hospital Course Hospital course: Summary: The patient is a 24-year-old male with a previous medical history of alcohol abuse disorder and withdrawal seizures who came to the ED with complaints of acute onset leg weakness and decreased lower limb mobility. He was admitted for weakness and hypokalemia likely secondary to vitamin deficiency and alcohol use disorder. Hospital Course: #Peripheral neuropathy #Gait instability #Suspected thiamine deficiency On exam patient had bilaterally leg weakness proximally and distally along with diminished patellar and achilles reflexes. Neurology was consulted on case. Lumbar puncture was done which showed increase CSF protein of 58 but RBC, WBC, and glucose were within normal limits. CT of spine and head were done which showed no acute process. Patients presentation of weakness possibly from alcohol induced neuropathy or from malnutrition given his work up was relatively unremarkable. Patient was given high dose IV thiamine x2 days. Advised to follow up with outpatient neurology for further workup including nerve conduction study and electromyography.. Was prescribed Gabapentin 100mg TID for concerns of neuropathic pain. Plan to [facility] to [facility]. Advised referral for vascular and rheumatological workup outpatient as well to rule out other possible causes for neuropathy such as myositis. #Alcohol Use Disorder #Acute alcohol withdrawal With patients history of alcohol use disorder he completed a course of librium on CIWA protocal. Labs revealed elevated MCV. Was given Thiamine and folic acid. Asked that patient start on vitamin B12, Folate, and thiamine. Encouraged alcohol cessation and regular diet. #Hypokalemia Patient had potassium level of 2.6 on presentation so he was given potassium supplementation, with resolution of potassium deficiency. Problem list: #Peripheral neuropathy #Gait instability #Suspected thiamine deficiency #Hypokalemia, resolved #Acute alcohol withdrawal #Alcohol Use Disorder #Macrocytic anemia #Elevated Transaminases, improving #Nicotine Dependence All labs returning to baseline. Patient clinically stable and fit to discharge to [facility] facility. Discharge plan: - We recommend you eat at least 2-3 meals a day. - We have started you on a multivitamin, take one tablet once a day. - Continue to take Vitamin D tablet. Take 1 tablet once a day - Continue to take folic acid 1 mg tablet once daily for 2 weeks - Continue to take Thiamine 100 mg tablet twice daily - Take gabapentin 100 mg TID for pain - Do not take gabapentin together with alcohol, it could lead potentially dangerous side effects - Suggest Rheumatology and Vascular Surgery consult as outpatient. You may need to be referred by your primary doctor. - Follow-up with Dr. Snyder in 1-2 weeks of discharge for nerve conduction and muscle studies. - Follow up with your primary doctor within 1 week of discharge - If you experience any new, worsening or persistent symptoms, either call your primary doctor, dial 911 or present to the emergency department. We are grateful to be able to participate in Mr. Fong' care. We wish him the best. Plan of care discussed with Attending Dr. Moreau and PGY2 Dr. Brad Engel MD PGY 1 Time spent discussing smoking cessation with patient: more than 10 minutes (15) Time Spent with Patient Time attestation: Total time spent providing and/or coordinating discharge services: Time spent: Greater than 30 minutes (37) Exam Vital Signs Temp Pulse Resp BP Pulse Ox O2 Del Method 98.0 F 88 16 129/82 93 L Room Air 05/31/24 08:00 05/31/24 08:00 05/31/24 08:00 05/31/24 08:00 05/31/24 08:00 05/31/24 08:00 Narrative Exam Constitutional: Patient alert to person, place and time. Resting in bed. CHEST: Symmetrical, atraumatic, and with equal expansion , Nontender on palpation no deformity and no crepitus. CARDIOVASCULAR: Heart regular rhythm no murmur or gallop rub or extra beats. LUNGS: Clear to auscultation bilaterally with symmetrical chest rise.? No laboring tachypnea or wheezing.? No intercostal subcostal retraction.? No rales and no rhonchi. ABDOMEN: Soft, flat, nontender to palpation, no guarding or rebound tenderness.? There are no abnormal masses palpated.? Active and normal bowel sounds. EXTREMITIES: - Strength: Patient has 5/5 strength in upper extremities bilaterally. Patient able to flex his hips against gravity but provides minimal force against resistance as he says it is painful to flex hips. 4/5 strength with flexion and extension of legs bilaterally. Bilateral foot drop noted. Plantarflexion is 5/5. - Sensation: Intact to light touch in upper and lower extremity. Proprioception intact. NEURO: Patient has some horizontal nystagmus noted on exam otherwise all other cranial nerves grossly intact. Reflexes 2+ in brachioradialis and biceps bilaterally. Patellar and achilles reflex 1+ bilaterally. No finger to nose dysmetria. No dysdiadichokinesia. No tremors noted. -- Patient was seen and discussed with attending physician, Dr. Moreau and resident physician, , PGY1 and Dr. Salinas, PGY 2 Massimo Rojas Medical student I have seen and examined the patient with medical student Massimo Rojas , agree with his findings and have edited it with my assessment as well. Selwyn Engel MD PGY1 Discharge Plan Plan Patient Disposition: Xfer Skilled Nsg Fac (SNF) Disposition Comment: Stable for discharge Care Plan Goals: Discharge recommendations: - We recommend you eat at least 2-3 meals a day. - We have started you on a multivitamin, take one tablet once a day. - Continue to take Vitamin D tablet. Take 1 tablet once a day - Continue to take folic acid 1 mg tablet once daily for 2 weeks - Continue to take Thiamine 100 mg tablet twice daily - Take gabapentin 100 mg TID for pain - Do not take gabapentin together with alcohol, it could lead potentially dangerous side effects - Suggest Rheumatology and Vascular Surgery consult as outpatient. You may need to be referred by your primary doctor. - Follow-up with Dr. Snyder in 1-2 weeks of discharge for nerve conduction and muscle studies. - Follow up with your primary doctor within 1 week of discharge - If you experience any new, worsening or persistent symptoms, either call your primary doctor, dial 911 or present to the emergency department. Prescriptions/Referrals Prescriptions/Med Rec: New folic acid 1 mg Tablet 1 mg PO BID Qty: 30 1RF thiamine mononitrate (vit B1) 100 mg Tablet 100 mg PO BID Qty: 30 0RF cholecalciferol (vitamin D3) 25 mcg (1,000 unit) Tablet 1,000 unit PO QDAY 30 Days Qty: 30 0RF nicotine 21 mg/24 hr Patch 24 Hour 21 mg top QDAY 30 Days Qty: 7 0RF vitamin B complex Capsule 1 cap PO QDAY Qty: 60 0RF Referrals: No Primary/Family,Physician [Primary Care Provider] - Shola Snyder MD [Physician] - Patient/Caregiver Discharge Instructions Education Materials: Alcoholism How to be Part of ..., Alcoholism Resources, Alcohol Addiction Print Language: Portuguese Stand Alone Forms: Krystle Award Info., Patient Portal Info Letter Discharge Order Discharge Orders: Discharge (Routine); Ordered 05/31/24 Ordered By: Rajinder Salinas Quality Discharge Quality Measures VTE prophylaxis
[2024-05-31 12:00] VITALS: BP 140/97; PULSE 79; RESP 18; TEMP 36.2; O2SAT 97
--- NOTE | 2024-05-31 12:27 | PD.RESPRO ---
Documentation for date of: 05/31/24 Subjective Subjective Interval history: Patient examined bedside this morning have weakness in both LE distally more than proximally,still difficult standing up and using the commode. No paresthesias/radicular pain from the lower back or bladder or bowel control. No UE symptoms reported. Exam Vital Signs Temp Pulse Resp BP Pulse Ox O2 Del Method 98.0 F 88 16 129/82 93 L Room Air 05/31/24 08:00 05/31/24 08:00 05/31/24 08:00 05/31/24 08:00 05/31/24 08:00 05/31/24 08:00 Narrative Exam General: Awake and in no acute distress. Conversational and non-toxic appearing. HEENT: Normocephalic, atraumatic, mucous membranes moist. Heart: Regular rate and rhythm, no murmurs. Lungs: Clear to auscultation with no wheezing or crackles. Abdomen: Soft, nondistended, nontender, positive bowel sounds. ?No guarding or rebound tenderness. Neurologic: Alert and oriented x3, strength in the upper extremities 5/5, lower extremities 4/5 in the upper muscle group, 5/5 in the lower muscle. Tendon reflexes symmetrical, 1+. Sensation intact. Babinski downgoing bilateral. Extremities: Hematoma and swelling on the left metatarsal area. Skin: No rash or ecchymoses. Objective Labs 05/31/24 05:10 05/31/24 05:10 Labs: Laboratory Results - last 24 hr 05/31/24 05:10 WBC 6.0 RBC 3.12 L Hgb 11.5 L Hct 33.3 L MCV 107 H MCH 36.9 H MCHC 34.5 RDW Std Deviation 62.7 H Plt Count 212 Neut % (Auto) 63 Lymph % (Auto) 18 [place] % (Auto) 15 H Eos % (Auto) 3 Baso % (Auto) 1 Neut # (Auto) 3.8 Lymph # (Auto) 1.0 [place] # (Auto) 0.9 H Eos # (Auto) 0.2 Baso # (Auto) 0.1 Immature Gran # (Auto) 0.02 H Absolute Nucleated RBC 0.00 Immature Gran % 0 Nucleated RBC % 0 Sodium 137 Potassium 4.2 D Chloride 106 Carbon Dioxide 24.8 Anion Gap 6 L BUN < 5 L Creatinine 0.6 Estim Creat Clear Calc 146.0 eGFR > 60 BUN/Creatinine Ratio 8 L Glucose 84 Calculated Osmolality 270 L Calcium 8.9 Corrected Calcium 9.5 Total Bilirubin 0.7 AST 37 H ALT 42 Alkaline Phosphatase 49 Total Protein 5.1 L Albumin 3.2 L Globulin 1.9 L Albumin/Globulin Ratio 1.7 Quality Measures Quality Measures VTE prophylaxis Assessment & Plan Assessment Current Active Medications: Generic Name Dose Route Start Last Admin Trade Name Freq PRN Reason Stop Dose Admin Acetaminophen 650 mg 05/30/24 09:51 Acetaminophen 325 Mg Tablet PO 06/26/24 13:54 Q6H PRN Fever >100.3 Docusate Sodium 100 mg 05/27/24 13:55 Docusate Sod 100 Mg Capsule PO 06/26/24 13:54 QDAY PRN CONSTIPATION Protocol Enoxaparin Sodium 40 mg 05/28/24 09:00 05/31/24 09:19 Enoxaparin Sod Inj 40 Mg/0.4 Ml Syringe SC 06/11/24 08:59 40 mg QDAY RICARDO Administration Folic Acid 1 mg 05/31/24 09:00 05/31/24 09:22 Folic Acid 1 Mg Tablet PO 06/05/24 08:59 1 mg DAILY RICARDO Administration Gabapentin 100 mg 05/30/24 22:00 05/31/24 05:29 Gabapentin 100 Mg Capsule PO 06/29/24 21:59 100 mg TID RICARDO Administration Thiamine HCl 250 mg/ Sodium 102.5 mls @ 205 mls/hr 05/31/24 09:00 05/31/24 09:20 Chloride IV 06/30/24 08:59 205 mls/hr QDAY RICARDO Administration Nicotine 21 mg 05/27/24 14:15 05/31/24 09:23 Nicotine Patch 21 Mg/24 Hr Patch.Td24 TOP 06/26/24 14:14 21 mg QDAY RICARDO Administration Ondansetron HCl 4 mg 05/27/24 13:55 Ondansetron Inj 2 Mg/Ml Inj 2 Ml IV 06/26/24 13:54 Q6H PRN NAUSEA OR VOMITING Protocol Sennosides 1 tab 05/27/24 13:55 Senna Tablet PO 06/26/24 13:54 QDAY PRN constipation Protocol Vitamin D 1,000 iu 05/30/24 10:45 05/31/24 09:30 Cholecalciferol (Vitamin D3) 1,000 Iu Tablet PO 06/29/24 10:44 1,000 iu QDAY [facility] Administration Plan The patient is a 24-year-old male with a previous medical history of alcohol abuse disorder and withdrawal seizures who came to the ED due to general body weakness that started few days ago, he noticed when he went to the restroom his legs were starting to really feel weak. He was admitted due to general weakness, hypokalemia. #Lower extremity weakness #Chronic peripheral peroneal neuropathy - LP yesterday his protein was 58. she recommended protein is not high to start Ivig, it is most likely acute bilateral peroneal neuropathy leading to bilateral foot drop sec to alcoholism. -he will need physical therapy and walk with AFO .steroid will also not play role. - he needs to continue thiamine, b12, folic acid 1mg with vit D -out patient EMG and NCS . -His parents were updated about the plan. Physical therapy recommended shelter facility. Patient initially hesitant to go to SNF but agreed later . -Avoid Alcohol Rest of the medical management as per primary team. Discussed the patient with my attending Dr Lillian Mitchell MD,PGY- 3 Attending Provider Attestation/Addendum Patient was seen and examined at the bedside and agreed with resident's findings, assessment and plan of care. stable for d/c with PT, vitamin and advised alcohol cessation. FU as an outpatient for EMG AND NCS
[2024-05-31 13:27] VITALS: PULSE 83
[2024-06-01 15:34] LABS: West Nile Virus Ab. IgG, Serum <1.30
[2024-06-03 06:27] LABS: West Nile Virus Ab. IgM, Serum <0.90
[2024-06-03 06:28] LABS: Vitamin B1 (Thiamine)* <6 nmol/L (8-30)
[2024-06-03 06:28] LABS: VDRL, CSF Qual* NON-REACTIVE
[2024-06-04 13:50] LABS: Albumin, CSF 32.7 mg/dL (8.0-42.0); IgG Index, CSF 0.64 (<0.70); IgG, CSF 4.9 mg/dL (0.8-7.7); IgG, Serum 639 mg/dL (600-1640)
[2024-06-06 07:04] LABS: Albumin, Serum 2.7 g/dL (3.6-5.1); Angiotensin Convert Enz, CSF* <5 U/L (< OR = 15); Myelin Basic Protein, CSF* <2.0 mcg/L (< OR = 4.0); Oligoclonal Bands, CSF* ABSENT (ABSENT)
== END 2024-05-31 14:55 | disposition skilled nursing facility (03) | DRG 48 ==
LOC: SERX 13:01 → SERHOLD 14:00 → S3SX 19:33
PROVIDERS: Psychiatry & Neurology Neurology; Admitting Provider Student in an Organized Health Care Education/Training Program; Emergency Provider Emergency Medicine; Visit Provider Internal Medicine
DX: G62.1 Alcoholic polyneuropathy (principal); E87.6 Hypokalemia; F10.139 Alcohol abuse with withdrawal, unspecified; I95.9 Hypotension, unspecified; D53.9 Nutritional anemia, unspecified; Y90.2 Blood alcohol level of 40-59 mg/100 ml; E53.8 Deficiency of other specified B group vitamins; Y90.0 Blood alcohol level of less than 20 mg/100 ml; E51.9 Thiamine deficiency, unspecified; R56.9 Unspecified convulsions; R29.6 Repeated falls; F17.210 Nicotine dependence, cigarettes, uncomplicated; Z79.899 Other long term (current) drug therapy
CPT/HCPCS: 36415; 70450; 72125; 72128; 72131; 80053; 80307; 80320; 82040; 82042; 82164; 82306; 82607; 82746; 82784; 82945; 83735; 83873; 83916; 84100; 84132; 84157; 84425; 85025; 85610; 86171; 86592; 86703; 86780; 86788; 86789; 87070; 87205; 89051; 93005; 93225; 93970; 96365; 96366; 97162; 99285; J1650; J1885; J3411; J3475; J3480; J3490; J7030; J7050; A9270; G0480